=== PATIENT | female | born 1945 | race Caucasian/White ===

== ENCOUNTER 2019-04-29 09:25 | Emergency (ER) | payer MEDICARE ==
[2019-04-29 09:35] LABS: BASOPHILS % (AUTO) 0.5 % (0.0-5.0); EOSINOPHILS % (AUTO) 2.6 % (0.0-8.0); HEMATOCRIT 48.4 % (36-48); LYMPHOCYTES % (AUTO) 20.2 % (21.0-51.0); MEAN CORPUSCULAR HEMOGLOBIN 28.4 pg (27.0-33.0); MEAN CORPUSCULAR HGB CONC 34.1 g/dL (32.0-36.0); MEAN CORPUSCULAR VOLUME 83.2 fL (79-99); MONOCYTES % (AUTO) 6.5 % (3.0-13.0); NEUTROPHILS % (AUTO) 69.5 % (40.0-77.0); PLATELET COUNT (AUTO) 275 K/uL (130-400); RED BLOOD CELL COUNT(AUTO) 5.82 MIL/uL (4.00-5.50); RED CELL DISTRIBUTION WIDTH 12.5 % (11.0-15.5); WHITE BLOOD COUNT (AUTO) 10.2 K/uL (4.8-10.8)
[2019-04-29 09:44] LABS: INR 0.97 (0.85-1.15); PARTIAL THROMBOPLASTIN TIME 29.6 SEC (26.3-35.5); POTASSIUM 3.8 mmol/L (3.5-5.1); PROTHROMBIN TIME 10.2 SEC (9.6-11.6)
[2019-04-29] MEDS ORDERED: ASPIRIN 325 MG TABLET ONE (09:52)
[2019-04-29 09:53] LABS: ALBUMIN 3.7 g/dL (3.5-5.0); BILIRUBIN,TOTAL 0.7 mg/dL (0.2-1.0); TOTAL PROTEIN, SERUM 7.8 g/dL (6.0-8.3)
[2019-04-29] MEDS ORDERED: INSULIN HUMULIN R 100 UNIT/ML 3ML ONE (11:30)
[2019-04-29] MEDS ORDERED: NITROGLYCERIN 1GM/1 INCH PACKET TD ONE (11:41)
[2019-04-29] MEDS ORDERED: KETOROLAC TROMETHAMINE 15MG/ML ONE (11:41)
== END 2019-04-29 14:03 | disposition home or self-care (01) ==
LOC: EDH 09:25
DX: R07.89 Other chest pain (principal); E11.65 Type 2 diabetes mellitus with hyperglycemia; R03.0 Elevated blood-pressure reading, without diagnosis of hypertension; Z72.0 Tobacco use
CPT/HCPCS: 36415; 71045; 74176; 80053; 82550; 82948; 84484 ×2; 85025; 85610; 85730; 93005 ×2; 96374; 96375; 99285; J1815; J1885

== ENCOUNTER 2019-05-11 13:12 | Inpatient (IN) | payer MEDICARE ==
[~2019-05-11] VITALS: Ht 160 cm; Wt 80.6 kg
[2019-05-11 13:31] LABS: BASOPHILS % (AUTO) 0.3 % (0.0-5.0); EOSINOPHILS % (AUTO) 1.1 % (0.0-8.0); LYMPHOCYTES % (AUTO) 11.6 % (21.0-51.0); MEAN CORPUSCULAR HEMOGLOBIN 28.9 pg (27.0-33.0); MEAN CORPUSCULAR HGB CONC 34.5 g/dL (32.0-36.0); MEAN CORPUSCULAR VOLUME 83.9 fL (79-99); MONOCYTES % (AUTO) 3.5 % (3.0-13.0); NEUTROPHILS % (AUTO) 82.7 % (40.0-77.0); PLATELET COUNT (AUTO) 229 K/uL (130-400); RED CELL DISTRIBUTION WIDTH 12.3 % (11.0-15.5); WHITE BLOOD COUNT (AUTO) 11.3 K/uL (4.8-10.8)
[2019-05-11 13:38] LABS: INR 0.92 (0.85-1.15)
[2019-05-11 13:44] LABS: ALBUMIN 3.8 g/dL (3.5-5.0); BILIRUBIN,TOTAL 0.8 mg/dL (0.2-1.0); CREATININE 0.8 mg/dL (0.5-1.5); POTASSIUM 3.6 mmol/L (3.5-5.1); TOTAL PROTEIN, SERUM 8.1 g/dL (6.0-8.3)
[2019-05-11] MEDS ORDERED: ASPIRIN 325 MG TABLET ONE (13:45)
[2019-05-11] MEDS ORDERED: ONDANSETRON HCL 4 MG/2 ML VIAL ONE ×2 (14:06→19:46)
[2019-05-11] MEDS ORDERED: MORPHINE SULFATE 2 MG/ML 1ML SYG ONE ×2 (14:06→19:42)
[2019-05-11] MEDS ORDERED: SODIUM CHLORIDE 0.9% 500ML 500 ML IV ONE (14:07)
[2019-05-11] MEDS ORDERED: FAMOTIDINE/PF 20 MG/2 ML VIAL IV ONE (14:17)
[2019-05-11] MEDS ORDERED: INSULIN HUMULIN R 100 UNIT/ML 3ML ONE ×2 (14:18→18:52)
[2019-05-11 15:07] LABS: APPEARANCE,URINE Cloudy (CLEAR); BILIRUBIN,URINE Negative (NEGATIVE); COLOR,URINE Yellow (YELLOW); GLUCOSE, URINE (UA) >=1000 mg/dL (NEGATIVE); KETONES,URINE 40 mg/dL (NEGATIVE); LEUKOCYTE ESTERASE ,URINE Negative (NEGATIVE); NITRATE,URINE Negative (NEGATIVE); OCCULT BLOOD,URINE Nonhemolyzed Trace (NEGATIVE); PROTEIN,URINE Negative (NEGATIVE); UROBILINOGEN,URINE 0.2 mg/dL (0.2-1.0)
[2019-05-11 15:13] LABS: ABG BASE EXCESS -4.2 mmol/L (-2.0-3.0); ABG HCO3 20.8 mmol/L (21.0-28.0); ABG PCO2 38 mmHg (32-45)
[2019-05-11 15:15] LABS: BACTERIA,URINE Rare /HPF (None Seen); RBC,URINE 0-1 /HPF (0-1); WBC,URINE 0-1 /HPF (0-1); YEAST,URINE BUDDING Many /HPF (None Seen)
[2019-05-11] MEDS ORDERED: ACETAMINOPHEN 325 MG TAB PO PRN (15:45)
[2019-05-11] MEDS ORDERED: KETOROLAC TROMETHAMINE 15MG/ML IV PRN (17:00)
[2019-05-11] MEDS ORDERED: DEXTROSE 5 %-0.45 % NACL 1,000 ML IV PRN (17:06)
[2019-05-11] MEDS ORDERED: SODIUM CHLORIDE 0.9% 1000ML 1,000 ML IV SCH ×2 (17:06)
[2019-05-11] MEDS ORDERED: INSULIN HUMULIN R 100 UNIT/ML 3ML IV SCH (17:15)
[2019-05-11] MEDS ORDERED: POTASSIUM CHLORIDE 10MEQ/100ML 100 ML IV PRN (17:15)
[2019-05-11] MEDS ORDERED: KETOROLAC TROMETHAMINE 15MG/ML ONE (17:40)
[2019-05-11 17:57] LABS: HEMOGLOBIN A1C 9.8 % (4.0-6.0)
[2019-05-11 17:58] LABS: CREATININE 0.8 mg/dL (0.5-1.5); MAGNESIUM 1.8 mg/dL (1.80-2.40); POTASSIUM 3.6 mmol/L (3.5-5.1)
[2019-05-11] MEDS ORDERED: IOHEXOL-350 75 ML VIAL IV ONE (18:50)
[2019-05-11] MEDS ORDERED: SODIUM CHLORIDE 0.9% 100 ML IV ONE (18:52)
[2019-05-11] MEDS ORDERED: SODIUM CHLORIDE 0.9% 1000ML 1,000 ML IV ONE ×2 (19:16→23:29)
[2019-05-11] MEDS ORDERED: METOPROLOL TARTRATE 25 MG TAB PO SCH (21:00)
[2019-05-11] MEDS: ATORVASTATIN CALCIUM 20 MG TABLET PO SCH (21:00)
[2019-05-11] MEDS: FAMOTIDINE 20MG TAB 20 MG TAB PO SCH (21:00)
[2019-05-11 21:20] LABS: TROPONIN I 13.7 ng/mL (0.00-0.06)
[2019-05-11] MEDS ORDERED: FAMOTIDINE 20MG TAB 20 MG TAB ONE (22:14)
[2019-05-11] MEDS ORDERED: METOPROLOL TARTRATE 25 MG TAB ONE (22:14)
[2019-05-11] MEDS ORDERED: ATORVASTATIN CALCIUM 20 MG TABLET ONE (22:14)
[2019-05-11] MEDS ORDERED: HEPARIN 25000 UNITS/250 ML D5W 250 ML IV SCH (22:15)
[2019-05-11] MEDS ORDERED: TICAGRELOR 90 MG TABLET PO SCH (22:15)
[2019-05-11] MEDS ORDERED: SODIUM CHLORIDE 0.9% 500ML 500 ML IV SCH (22:17)
[2019-05-11 23:18] LABS: CREATININE 0.8 mg/dL (0.5-1.5); POTASSIUM 3.5 mmol/L (3.5-5.1)
[2019-05-11 23:21] LABS: INR 0.94 (0.85-1.15); PARTIAL THROMBOPLASTIN TIME 26.5 SEC (26.3-35.5); PROTHROMBIN TIME 10.2 SEC (9.6-11.6)
[2019-05-11] MEDS ORDERED: POTASSIUM CHLORIDE 10MEQ/100ML 100 ML IV ONE (23:27)
[2019-05-11] MEDS ORDERED: TICAGRELOR 90 MG TABLET ONE (23:28)
[2019-05-11] MEDS ORDERED: HEPARIN 25000 UNITS/250 ML D5W 250 ML IV ONE (23:28)
[2019-05-11] MEDS ORDERED: HEPARIN SODIUM 5000UNIT/ML 1ML VIAL ONE (23:54)
[2019-05-12] VITALS (25 sets, daily range): BP systolic 85–142; BP diastolic 39–82
[2019-05-12 00:17] LABS: ABG BASE EXCESS -4.4 mmol/L (-2.0-3.0); ABG HCO3 20.1 mmol/L (21.0-28.0); ABG OXYGEN SATURATION 97.2 % (95.0-99.0); ABG PCO2 36 mmHg (32-45)
[2019-05-12] MEDS ORDERED: LIDOCAINE HCL-MPF 1% 2ML VIAL ONE ×2 (00:17→02:14)
[2019-05-12] MEDS ORDERED: POTASSIUM CHLORIDE 10MEQ/100ML 100 ML IV ONE (02:14)
[2019-05-12] MEDS ORDERED: MORPHINE SULFATE 2 MG/ML 1ML SYG ONE (02:15)
[2019-05-12] MEDS ORDERED: ONDANSETRON HCL 4 MG/2 ML VIAL ONE ×2 (02:26→08:37)
[2019-05-12 04:38] LABS: ABG BASE EXCESS -3.5 mmol/L (-2.0-3.0); ABG HCO3 21.1 mmol/L (21.0-28.0); ABG OXYGEN SATURATION 94.3 % (95.0-99.0); ABG PCO2 37 mmHg (32-45)
[2019-05-12 05:40] LABS: BASOPHILS % (AUTO) 0.1 % (0.0-5.0); EOSINOPHILS % (AUTO) 0.1 % (0.0-8.0); HEMATOCRIT 42.2 % (36-48); LYMPHOCYTES % (AUTO) 7.4 % (21.0-51.0); MEAN CORPUSCULAR HEMOGLOBIN 28.5 pg (27.0-33.0); MEAN CORPUSCULAR HGB CONC 33.6 g/dL (32.0-36.0); MEAN CORPUSCULAR VOLUME 84.6 fL (79-99); MONOCYTES % (AUTO) 5.3 % (3.0-13.0); NEUTROPHILS % (AUTO) 86.3 % (40.0-77.0); PLATELET COUNT (AUTO) 272 K/uL (130-400); RED BLOOD CELL COUNT(AUTO) 4.99 MIL/uL (4.00-5.50); RED CELL DISTRIBUTION WIDTH 12.5 % (11.0-15.5); WHITE BLOOD COUNT (AUTO) 17.1 K/uL (4.8-10.8)
[2019-05-12] MEDS ORDERED: SODIUM CHLORIDE 0.9% 1000ML 1,000 ML IV ONE (06:15)
[2019-05-12 06:19] LABS: CREATININE 0.6 mg/dL (0.5-1.5); MAGNESIUM 1.7 mg/dL (1.80-2.40); POTASSIUM 3.6 mmol/L (3.5-5.1)
[2019-05-12] MEDS ORDERED: DiphenhydrAMINE HCL 50 MG/ML VIAL ONE (08:29)
[2019-05-12] MEDS ORDERED: METHYLPREDNISOLONE SOD SUCC 125MG/2ML VIAL ONE (08:29)
[2019-05-12] MEDS ORDERED: HEPARIN SODIUM 1000UNIT/ML 10ML VIAL ONE (08:39)
[2019-05-12] MEDS ORDERED: NITROGLYCERIN 2 MG/VIAL VIAL IV ONE (08:39)
[2019-05-12] MEDS ORDERED: FENTANYL CITRATE PF 50 MCG/1 ML 2ML VIAL ONE (08:40)
[2019-05-12] MEDS ORDERED: MIDAZOLAM HCL 1 MG/ML 2ML VIAL ONE (08:40)
[2019-05-12] MEDS ORDERED: IOHEXOL-350 50ML VIAL IV ONE (08:40)
[2019-05-12] MEDS ORDERED: LIDOCAINE HCL 2% 20ML ONE (08:40)
[2019-05-12] MEDS ORDERED: IOHEXOL 350 MG/ML 100ML INFUS..BTL IV ONE (08:40)
[2019-05-12] MEDS ORDERED: NITROGLYCERIN 0.2 MG/HR PATCH TD SCH (09:00)
[2019-05-12] MEDS: NICOTINE 14 MG/ 24 HR PATCH TD SCH (09:00)
[2019-05-12] MEDS ORDERED: ENOXAPARIN SODIUM 40 MG/0.4 ML SYRINGE SQ SCH (09:00)
[2019-05-12] MEDS ORDERED: GLUCAGON 1MG KIT 1 MG ML IM PRN (10:00)
[2019-05-12] MEDS ORDERED: DEXTROSE 50%-WATER 50 ML DISP.SYRIN IV PRN (10:00)
[2019-05-12] MEDS: NITROGLYCERIN 1GM/1 INCH PACKET TD SCH ×3 (11:45→23:03)
[2019-05-12 11:48] LABS: CREATININE 0.6 mg/dL (0.5-1.5); POTASSIUM 3.7 mmol/L (3.5-5.1)
[2019-05-12] MEDS: MORPHINE SULFATE 2 MG/ML 1ML SYG IVP PRN (11:49)
[2019-05-12] MEDS: TICAGRELOR 90 MG TABLET PO SCH ×2 (11:52→21:04)
[2019-05-12] MEDS: ISOSORBIDE MONO 30MG TAB SR PO SCH (11:52)
[2019-05-12] MEDS: ASPIRIN 81MG TAB.CHEW PO SCH (11:52)
[2019-05-12] MEDS: FAMOTIDINE 20MG TAB 20 MG TAB PO SCH ×2 (11:53→21:02)
[2019-05-12] MEDS: INSULIN HUMULIN R 100 UNIT/ML 3ML SQ SCH ×2 (12:00→17:41)
[2019-05-12] MEDS ORDERED: POTASSIUM CHLORIDE 10% ELIXIR 20 MEQ/15 ML UDCUP PO PRN (12:15)
[2019-05-12] MEDS ORDERED: LIDOCAINE HCL-MPF 1% 2ML VIAL IV PRN (12:15)
[2019-05-12] MEDS ORDERED: POTASSIUM CHLORIDE 20MEQ/100ML 100 ML IV PRN (12:15)
[2019-05-12] MEDS ORDERED: POTASSIUM CHLORIDE 20 MEQ ERTAB PO PRN (12:15)
--- NOTE | 2019-05-12 12:23 | NUR ---
Unable to Assess SW attempted to meet with patient while in the ER but patient was taken to [facility]. SW will follow up with patient at a later time.
[2019-05-12] MEDS ORDERED: PNEUMOCOCCAL VACCINE POLYVALENT 0.5 ML/VIAL [PPV] IM SCH (17:07)
--- NOTE | 2019-05-12 18:30 | NUR ---
SLOW VENTRICULAR TACHYCARDIA DR AGARWAL AT BEDSIDE TO ASSESS PATIENT. PATIENT FULLY ASLEEP IN BED. RHYTHM IN MONITOR NOW SHOWING PERSISTENT VENTRICULAR TACHYCARDIA @ 115 BPM. WOKE PATIENT UP TO ASSESS AND SHE BEGAN CONVERSING WITH DR AGARWAL STATING THAT SHE WAS FEELING OK. PATIENT IS AWAKE ALERT AND ORIENTED, NOT SYMPTOMATIC AT THIS TIME.
--- NOTE | 2019-05-12 18:45 | NUR ---
DR AGARWAL STILL AT BEDSIDE PATIENT NOW STATING THAT SHE IS FEELING SOB, WEAK, AND NAUSEATED. SLOW VENTRICULAR TACHYCARDIA PERSISTING. DR AGARWAL REVIEWING PATIENT'S EKG TRACINGS THROUGHOUT THE DAY. LAB VALUES REVIEWED. ORDERED 2GM MAG IV, LOPRESSOR 5MG IV PUSH. 2LNC O2 PLACED ON PATIENT.
--- NOTE | 2019-05-12 19:00 | NUR ---
DR. ARRON HELLER AT BEDSIDE. PT S/P [facility] 05/12/2019. ISCHEMIC VT/SLOW V-TACT NOTED BY DR AGARWAL. SEE ORDER FOR AMIODARONE, AMIODARONE BOLUS, LIDOCAINE, LIDOCAINE BOLUS AND LABS. EKG DONE AT BEDSIDE.
[2019-05-12] MEDS ORDERED: METOPROLOL TARTRATE 1 MG/ML 5ML VIAL IV ONE (19:04)
[2019-05-12] MEDS ORDERED: AMIODARONE HCL 150 MG in DEXTROSE 5%-WATER 100 ML IV SCH (19:15)
[2019-05-12] MEDS ORDERED: AMIODARONE HCL 450 MG in DEXTROSE 5%-WATER 250 ML IV SCH (19:15)
[2019-05-12] MEDS ORDERED: AMIODARONE HCL 360 MG in DEXTROSE 5%-WATER 200 ML IV SCH (19:15)
[2019-05-12] MEDS ORDERED: LIDOCAINE 2G/250ML 250 ML IV PRN (19:15)
[2019-05-12] MEDS ORDERED: LIDOCAINE HCL/PF 2% IV FOR VENTRICULAR ARRHYTHMIA IV PRN (19:15)
[2019-05-12] MEDS ORDERED: LIDOCAINE 2G/250ML 250 ML IV NR (19:17)
--- NOTE | 2019-05-12 19:28 | NUR ---
VENTRICULAR TACHYCARDIA STOPPED, PATIENT SPONTANEOUSLY CONVERTED TO NSR RT 75-80 DR AGARWAL AT BEDSIDE AND WITNESSED PATIENT CONVERTING BACK TO SINUS RHYTHM.
--- NOTE | 2019-05-12 19:30 | NUR ---
ASSESSMENT PT NOW RESTING IN BED. PT ANXIOUS,ISCHEMIC VT/ST VT EXPLAINED TO PT. PT AAOX4. ASSESSMENT COMPLETED, SEE FLOW SHEET
[2019-05-12 20:26] LABS: CREATININE 0.8 mg/dL (0.5-1.5); POTASSIUM 3.3 mmol/L (3.5-5.1)
[2019-05-12 20:30] LABS: MAGNESIUM 1.5 mg/dL (1.80-2.40); PHOSPHORUS 2.5 mg/dL (2.5-4.9)
[2019-05-12] MEDS ORDERED: INSULIN HUMULIN R 100 UNIT/ML 3ML ONE (20:40)
[2019-05-12] MEDS: INSULIN GLARGINE 100 UNITS/ML 10 ML VIAL SQ SCH (20:53)
[2019-05-12] MEDS ORDERED: INSULIN HUMULIN R 100 UNIT/ML 3ML SQ SCH (21:00)
[2019-05-12] MEDS: ATORVASTATIN CALCIUM 20 MG TABLET PO SCH (21:04)
[2019-05-12] MEDS: METOPROLOL TARTRATE 50 MG TAB PO SCH (21:05)
[2019-05-12] MEDS ORDERED: SODIUM CHLORIDE 0.9% 250 ML IV ONE (22:52)
[2019-05-12] MEDS: MAGNESIUM 2GM PREMIX 50ML 50 ML IV PRN (23:01)
[2019-05-13] VITALS (26 sets, daily range): BP systolic 82–133; BP diastolic 38–109
[2019-05-13 04:02] LABS: BASOPHILS % (AUTO) 0.1 % (0.0-5.0); HEMATOCRIT 40.3 % (36-48); LYMPHOCYTES % (AUTO) 7.1 % (21.0-51.0); MEAN CORPUSCULAR HGB CONC 34.5 g/dL (32.0-36.0); MEAN CORPUSCULAR VOLUME 84.1 fL (79-99); MONOCYTES % (AUTO) 9.1 % (3.0-13.0); NEUTROPHILS % (AUTO) 82.7 % (40.0-77.0); PLATELET COUNT (AUTO) 277 K/uL (130-400); RED BLOOD CELL COUNT(AUTO) 4.79 MIL/uL (4.00-5.50); RED CELL DISTRIBUTION WIDTH 12.5 % (11.0-15.5); WHITE BLOOD COUNT (AUTO) 20.1 K/uL (4.8-10.8)
[2019-05-13 04:13] LABS: CREATININE 0.8 mg/dL (0.5-1.5); MAGNESIUM 2.7 mg/dL (1.80-2.40); POTASSIUM 3.4 mmol/L (3.5-5.1)
[2019-05-13 04:27] LABS: B-TYPE NATRIURETIC PEPTIDE 418 pg/mL (0-100)
[2019-05-13] MEDS: NITROGLYCERIN 1GM/1 INCH PACKET TD SCH (04:45)
--- NOTE | 2019-05-13 05:05 | NUR ---
BP BP 95/52, NITRO HELD
[2019-05-13] MEDS: INSULIN LISPRO 100 UNIT/ML 3ML SQ SCH ×7 (05:57→20:42)
--- NOTE | 2019-05-13 09:00 | NUR ---
PT CHEST PAIN FREE. PLAN OF CARE DISCUSSED. STABLE
[2019-05-13] MEDS: METOPROLOL TARTRATE 50 MG TAB PO SCH ×2 (10:15→20:43)
[2019-05-13] MEDS: TICAGRELOR 90 MG TABLET PO SCH ×2 (10:15→20:53)
[2019-05-13] MEDS: ISOSORBIDE MONO 30MG TAB SR PO SCH (10:15)
[2019-05-13] MEDS: ASPIRIN 81MG TAB.CHEW PO SCH (10:16)
[2019-05-13] MEDS: NICOTINE 14 MG/ 24 HR PATCH TD SCH (10:26)
[2019-05-13] MEDS: FAMOTIDINE 20MG TAB 20 MG TAB PO SCH ×2 (10:31→20:53)
[2019-05-13 11:08] LABS: MAGNESIUM 2.3 mg/dL (1.80-2.40); PHOSPHORUS 1.8 mg/dL (2.5-4.9)
[2019-05-13] MEDS: NEUTRA-PHOS PACKET 1 EACH PO SCH ×2 (13:30→20:53)
--- NOTE | 2019-05-13 15:42 | NUR ---
DIRECTIVES Sw has attempted to visit with pt several times today. No family at bedside and pt requesting no visitors at this time. Sw to follow and assist when able
[2019-05-13] MEDS: MORPHINE SULFATE 2 MG/ML 1ML SYG IVP PRN ×2 (16:24→21:35)
[2019-05-13] MEDS: ONDANSETRON HCL 4 MG/2 ML VIAL IVP PRN ×2 (16:30→21:35)
--- NOTE | 2019-05-13 16:52 | NUR ---
PT HAD EPISODE OF +6 LEFT SIDED CHEST PAIN UNDER LEFT BREAST RADIATING TO LEFT SHOULDER WITH SOME MILD NAUSEA. THIS OCCURED AFTER GETTING UP TO BATHROOM TO VOID. I NOTIFIED DR AGARWAL AND INFORMED HIM OF EPISODE. ORDERS WERE RECIEVED. HR 83 NSR,BP 117/65. O2 SAT 99%. NO SOB. IV SITE TO LEFT ANTECUBITUS REMOVED INTACT -REMOVED DUE TO PAIN
--- NOTE | 2019-05-13 17:27 | NUR ---
VICTOR[facility] PLAN DAY ONE PATIENT DOWN FOR PROCEDURE. DAY TWO PATIENT DID NOT WANT VISITORS. GEOVANI WILL CONTINUE TO FOLLOW. Addendum: 05/13/19 at 1728 by JALEN ROSS RN CM Amended: Links added.
--- NOTE | 2019-05-13 17:32 | NUR ---
EKG RHYTHM CHANGE NOTED- [address]KG DONE AND DR AGARWAL CALLED. PT ASYMPTOMATIC AND HAS NO CHEST PAIN OR SOB. SHE IS SITTING IN CHAIR EATING DINNER NOW. DR AGARWAL SAID HE WOULD BE CALLING HIS COLLEAGUE DR MASON AND HE WOULD CALL ME BACK
--- NOTE | 2019-05-13 17:39 | NUR ---
PT NOW BACK IN HER NORMAL SINUS RHYTHM RATE [id number]
[2019-05-13] MEDS ORDERED: AMIODARONE HCL 450 MG in DEXTROSE 5%-WATER 250 ML IV SCH (18:15)
[2019-05-13] MEDS ORDERED: AMIODARONE HCL 150 MG in DEXTROSE 5%-WATER 100 ML IV SCH (18:15)
[2019-05-13] MEDS ORDERED: AMIODARONE HCL 360 MG in DEXTROSE 5%-WATER 200 ML IV SCH (18:15)
--- NOTE | 2019-05-13 19:31 | NUR ---
HAND OFF REPORT GIVEN TO LYNNE SAUL
[2019-05-13] MEDS: INSULIN GLARGINE 100 UNITS/ML 10 ML VIAL SQ SCH (20:43)
[2019-05-13] MEDS: ATORVASTATIN CALCIUM 20 MG TABLET PO SCH (20:53)
[2019-05-13 21:08] LABS: CREATININE 0.7 mg/dL (0.5-1.5); MAGNESIUM 2.1 mg/dL (1.80-2.40); PHOSPHORUS 2.1 mg/dL (2.5-4.9); POTASSIUM 3.7 mmol/L (3.5-5.1)
[2019-05-14] VITALS (29 sets, daily range): BP systolic 92–134; BP diastolic 44–84
[2019-05-14 03:46] LABS: BASOPHILS % (AUTO) 0.2 % (0.0-5.0); EOSINOPHILS % (AUTO) 0.8 % (0.0-8.0); HEMATOCRIT 38.2 % (36-48); LYMPHOCYTES % (AUTO) 12.2 % (21.0-51.0); MEAN CORPUSCULAR HEMOGLOBIN 28.4 pg (27.0-33.0); MEAN CORPUSCULAR HGB CONC 33.5 g/dL (32.0-36.0); MEAN CORPUSCULAR VOLUME 84.9 fL (79-99); MONOCYTES % (AUTO) 9.7 % (3.0-13.0); NEUTROPHILS % (AUTO) 76.3 % (40.0-77.0); PLATELET COUNT (AUTO) 233 K/uL (130-400); RED CELL DISTRIBUTION WIDTH 12.7 % (11.0-15.5)
[2019-05-14 04:00] LABS: CREATININE 0.6 mg/dL (0.5-1.5); PHOSPHORUS 2.6 mg/dL (2.5-4.9); POTASSIUM 3.6 mmol/L (3.5-5.1)
[2019-05-14] MEDS: INSULIN LISPRO 100 UNIT/ML 3ML SQ SCH ×6 (07:05→21:00)
[2019-05-14] MEDS: METOPROLOL TARTRATE 50 MG TAB PO SCH ×2 (07:57→21:26)
[2019-05-14] MEDS: ISOSORBIDE MONO 30MG TAB SR PO SCH (07:57)
[2019-05-14] MEDS: ASPIRIN 81MG TAB.CHEW PO SCH (07:58)
[2019-05-14] MEDS: TICAGRELOR 90 MG TABLET PO SCH ×2 (07:58→21:26)
[2019-05-14] MEDS: FAMOTIDINE 20MG TAB 20 MG TAB PO SCH ×2 (07:58→21:25)
[2019-05-14] MEDS: NEUTRA-PHOS PACKET 1 EACH PO SCH ×2 (07:59→21:26)
[2019-05-14] MEDS: NICOTINE 14 MG/ 24 HR PATCH TD SCH (08:36)
[2019-05-14] MEDS: ONDANSETRON HCL 4 MG/2 ML VIAL IVP PRN ×2 (11:51→17:19)
--- NOTE | 2019-05-14 11:56 | NUR ---
DC PLAN PATIENT LIVES WITH SON. INDEPENDENT ABLE TO PERFORM ADL'S. PATIENT HAS NO SERVICES OR DME'S. FEELS SAFE TO RETURN HOME. Addendum: 05/14/19 at 1159 by JALEN ROSS RN CM Amended: Links added.
--- NOTE | 2019-05-14 13:31 | NUR ---
DIRECTIVES Sw met with pt and daughter Jennifer. Pt wanting to complete Directives and MPOA. SW assist with completing form. Forms were signed and witnessed. Copy placed in chart and original given to daughter in law at bedside.
--- NOTE | 2019-05-14 19:05 | NUR ---
Received report ,patient is off Amiodarone drip.
[2019-05-14] MEDS: ATORVASTATIN CALCIUM 20 MG TABLET PO SCH (21:26)
[2019-05-14] MEDS: INSULIN GLARGINE 100 UNITS/ML 10 ML VIAL SQ SCH (21:35)
[2019-05-14] MEDS ORDERED: ALPRAZOLAM 0.25 MG TABLET PO ONE (22:00)
[2019-05-14] MEDS ORDERED: ALPRAZOLAM 0.25 MG TABLET ONE (23:05)
[2019-05-15] VITALS (29 sets, daily range): BP systolic 95–146; BP diastolic 47–84
[2019-05-15 05:12] LABS: MAGNESIUM 1.9 mg/dL (1.80-2.40); PHOSPHORUS 2.9 mg/dL (2.5-4.9)
[2019-05-15] MEDS: INSULIN LISPRO 100 UNIT/ML 3ML SQ SCH ×7 (05:52→21:00)
[2019-05-15] MEDS: MAGNESIUM 2GM PREMIX 50ML 50 ML IV PRN (06:32)
--- NOTE | 2019-05-15 07:41 | NUR ---
Endorsed care to incoming NOD using SBAR all questions answered.Magnesium replaced.
[2019-05-15] MEDS: ASPIRIN 81MG TAB.CHEW PO SCH (08:45)
[2019-05-15] MEDS: TICAGRELOR 90 MG TABLET PO SCH ×2 (08:45→20:41)
[2019-05-15] MEDS: NEUTRA-PHOS PACKET 1 EACH PO SCH ×2 (08:47→20:41)
[2019-05-15] MEDS: NICOTINE 14 MG/ 24 HR PATCH TD SCH (08:47)
[2019-05-15] MEDS: FAMOTIDINE 20MG TAB 20 MG TAB PO SCH (08:49)
[2019-05-15] MEDS: ISOSORBIDE MONO 30MG TAB SR PO SCH (09:00)
[2019-05-15] MEDS: METOPROLOL TARTRATE 50 MG TAB PO SCH ×2 (09:00→20:41)
[2019-05-15 11:24] LABS: CREATININE 0.7 mg/dL (0.5-1.5); POTASSIUM 3.5 mmol/L (3.5-5.1)
[2019-05-15] MEDS ORDERED: AMIODARONE HCL 200 MG TABLET PO SCH (14:45)
[2019-05-15] MEDS: ONDANSETRON HCL 4 MG/2 ML VIAL IVP PRN (17:17)
[2019-05-15] MEDS: ATORVASTATIN CALCIUM 20 MG TABLET PO SCH (20:41)
[2019-05-15] MEDS: RANITIDINE HCL 15 MG/1 ML PO SCH (20:42)
[2019-05-15] MEDS: INSULIN GLARGINE 100 UNITS/ML 10 ML VIAL SQ SCH (21:00)
[2019-05-16 03:43] VITALS: BP 113/59
[2019-05-16 04:58] LABS: BASOPHILS % (AUTO) 0.2 % (0.0-5.0); EOSINOPHILS % (AUTO) 1.1 % (0.0-8.0); HEMATOCRIT 39.3 % (36-48); LYMPHOCYTES % (AUTO) 11.6 % (21.0-51.0); MEAN CORPUSCULAR HEMOGLOBIN 28.2 pg (27.0-33.0); MEAN CORPUSCULAR HGB CONC 33.6 g/dL (32.0-36.0); MONOCYTES % (AUTO) 10.4 % (3.0-13.0); NEUTROPHILS % (AUTO) 76.1 % (40.0-77.0); PLATELET COUNT (AUTO) 281 K/uL (130-400); RED BLOOD CELL COUNT(AUTO) 4.68 MIL/uL (4.00-5.50); RED CELL DISTRIBUTION WIDTH 12.7 % (11.0-15.5); WHITE BLOOD COUNT (AUTO) 11.5 K/uL (4.8-10.8)
[2019-05-16 05:19] LABS: CREATININE 0.7 mg/dL (0.5-1.5); MAGNESIUM 1.9 mg/dL (1.80-2.40); PHOSPHORUS 3.1 mg/dL (2.5-4.9); POTASSIUM 3.4 mmol/L (3.5-5.1); THYROID STIMULATING HORMONE 39.11 uIU/mL (0.36-3.74)
[2019-05-16] MEDS: INSULIN LISPRO 100 UNIT/ML 3ML SQ SCH ×4 (06:23→12:11)
[2019-05-16 07:51] VITALS: BP 98/56
[2019-05-16] MEDS ORDERED: AMIODARONE HCL 200 MG TABLET PO SCH (09:00)
[2019-05-16] MEDS: TICAGRELOR 90 MG TABLET PO SCH (09:28)
[2019-05-16] MEDS: RANITIDINE HCL 15 MG/1 ML PO SCH (09:29)
[2019-05-16] MEDS: ASPIRIN 81MG TAB.CHEW PO SCH (09:29)
[2019-05-16] MEDS: NICOTINE 14 MG/ 24 HR PATCH TD SCH (09:29)
[2019-05-16] MEDS: NEUTRA-PHOS PACKET 1 EACH PO SCH (09:30)
[2019-05-16] MEDS ORDERED: NICO-704 TD (09:35)
[2019-05-16] MEDS ORDERED: TICA90TA PO (09:35)
[2019-05-16] MEDS ORDERED: Isosorbide Mono 30MG Tab Sr PO (09:35)
[2019-05-16] MEDS ORDERED: METF-444 PO (09:35)
[2019-05-16] MEDS ORDERED: GLIP5TAB11 PO (09:35)
[2019-05-16] MEDS ORDERED: METO50 PO (09:35)
[2019-05-16] MEDS ORDERED: AMIO200T44 PO (09:35)
[2019-05-16] MEDS ORDERED: ATOR20TA65 PO (09:35)
[2019-05-16] MEDS ORDERED: ASPI-1005 PO (09:35)
[2019-05-16] MEDS ORDERED: LEVO50TA11 PO (09:50)
[2019-05-16] MEDS ORDERED: CEPH500B PO (10:32)
[2019-05-16] MEDS: METOPROLOL TARTRATE 50 MG TAB PO SCH (10:40)
[2019-05-16] MEDS: ISOSORBIDE MONO 30MG TAB SR PO SCH (10:40)
[2019-05-16] MEDS ORDERED: PNEUMOCOCCAL VACCINE POLYVALENT 0.5 ML/VIAL [PPV] IM SCH (11:00)
[2019-05-16 12:10] VITALS: BP 105/60
--- NOTE | 2019-05-16 12:20 | NUR ---
DISCHARGE INSTRUCTIONS DISCHARGE INSTRUCTIONS WERE DISCUSSED WITH THE PATIENT AND FAMILY MEMBER AT THIS TIME. PATIENT AND FAMILY MEMBER VERBALIZED UNDERSTANDING OF INFORMATION OF NEW MEDICATIONS AND FOLLOW UP APPOINTMENTS. PAPERWORK WAS SIGNED BY PATIENT. IV DISCONTINUED, [facility] AMBASSADOR WAS REMOVED. PATIENT SENT DOWN AT THIS TIME.
--- NOTE | 2019-05-16 14:24 | NUR ---
NUTRITION EDUCATION COMPLETED RD PROVIDED DIABETES DIET AND NUTRITION EDUCATION DUE TO NEWLY DIAGNOSED AND ELEVATED A1C OF 9.8%. ALL QUESTIONS WERE ANSWERED AND PT/ FAMILY VERBALIZED UNDERSTANDING. EDUCATION MATERIALS WERE PROVIDED IN [place] FOR HOME. Addendum: 05/16/19 at [address] Amended: Links added.
== END 2019-05-16 12:29 | disposition home or self-care (01) | DRG 280 ==
LOC: EDH 13:12 → EDHIP 15:15 → 2CH 05-12 10:41 → 2DH 05-15 19:40
PROVIDERS: ADMIT Family Medicine; ATTEND Family Medicine
PROC: 4A023N7 Measurement of Cardiac Sampling and Pressure, Left Heart, Percutaneous Approach (ICD-10-PCS; principal; 2019-05-12)
PROC: B2111ZZ Fluoroscopy of Multiple Coronary Arteries using Low Osmolar Contrast (ICD-10-PCS; 2019-05-12)
PROC: B2151ZZ Fluoroscopy of Left Heart using Low Osmolar Contrast (ICD-10-PCS; 2019-05-12)
PROC: 3E0234Z Introduction of Serum, Toxoid and Vaccine into Muscle, Percutaneous Approach (ICD-10-PCS; 2019-05-16)
DX: I21.4 Non-ST elevation (NSTEMI) myocardial infarction (principal); E11.10 Type 2 diabetes mellitus with ketoacidosis without coma; I25.42 Coronary artery dissection; I45.89 Other specified conduction disorders; I47.2 Ventricular tachycardia; I50.22 Chronic systolic (congestive) heart failure; R09.02 Hypoxemia; I25.118 Atherosclerotic heart disease of native coronary artery with other forms of angina pectoris; F17.200 Nicotine dependence, unspecified, uncomplicated; I95.9 Hypotension, unspecified; I11.0 Hypertensive heart disease with heart failure; E03.9 Hypothyroidism, unspecified; E78.5 Hyperlipidemia, unspecified; I25.5 Ischemic cardiomyopathy; Z83.3 Family history of diabetes mellitus; Z82.49 Family history of ischemic heart disease and other diseases of the circulatory system; Z79.899 Other long term (current) drug therapy; Z23 Encounter for immunization; Z71.6 Tobacco abuse counseling
CPT/HCPCS: 36415; 36600; 71045; 80048; 80053; 80061; 81001; 82010; 82435; 82550; 82803; 82947; 82948; 83036; 83605; 83735; 83874; 83880; 84100; 84132; 84145; 84295; 84443; 84484; 85018; 85025; 85347; 85378; 85610; 85730; 90732; 93005; 93306; 93356; 93458; 97039; 99156; 99157; 99291; C1760; C1894; G0378; J0282; J1200; J1644; J1815; J1885; J2250; J2405; J2930; J3010; J3475; J3480; J3490; J7030; J7040; J7060; Q9967

== ENCOUNTER 2019-11-09 01:27 | Inpatient (IN) | payer MEDICARE ==
[~2019-11-09] VITALS: Ht 160 cm; Wt 88.0 kg
[~2019-11-09 01:27] MED LIST: AMIO200T44 PO; ASPI-1005 PO; ATOR20TA65 PO; CEPH500B PO; GLIP5TAB11 PO; Isosorbide Mono 30MG Tab Sr PO; LEVO50TA11 PO; METF-444 PO; METO50 PO; NICO-704 TD; TICA90TA PO
[2019-11-09 02:06] LABS: BASOPHILS % (AUTO) 0.4 % (0.0-5.0); EOSINOPHILS % (AUTO) 4.9 % (0.0-8.0); HEMATOCRIT 48.7 % (36-48); LYMPHOCYTES % (AUTO) 41.5 % (21.0-51.0); MEAN CORPUSCULAR HEMOGLOBIN 29.4 pg (27.0-33.0); MEAN CORPUSCULAR HGB CONC 33.5 g/dL (32.0-36.0); MEAN CORPUSCULAR VOLUME 87.9 fL (79-99); MONOCYTES % (AUTO) 4.8 % (3.0-13.0); NEUTROPHILS % (AUTO) 47.6 % (40.0-77.0); PLATELET COUNT (AUTO) 314 K/uL (130-400); RED BLOOD CELL COUNT(AUTO) 5.54 MIL/uL (4.00-5.50); RED CELL DISTRIBUTION WIDTH 13.2 % (11.0-15.5); WHITE BLOOD COUNT (AUTO) 14.3 K/uL (4.8-10.8)
[2019-11-09 02:17] LABS: POTASSIUM 3.7 mmol/L (3.5-5.1)
[2019-11-09 02:21] LABS: INR 0.97 (0.85-1.15); PROTHROMBIN TIME 10.5 SEC (9.6-11.6)
[2019-11-09 02:26] LABS: ALBUMIN 3.8 g/dL (3.5-5.0); BILIRUBIN,TOTAL 0.5 mg/dL (0.2-1.0); TOTAL PROTEIN, SERUM 8.1 g/dL (6.0-8.3)
[2019-11-09] MEDS ORDERED: IOHEXOL-350 75 ML VIAL IV ONE (03:02)
[2019-11-09] MEDS ORDERED: AZITHROMYCIN 500MG+NS 250ML 250 ML IV ONE (04:51)
[2019-11-09] MEDS ORDERED: DEXAMETHASONE SOD PHOSPHATE 4 MG/ML 5ML VIAL ONE (04:51)
[2019-11-09] MEDS ORDERED: CEFTRIAXONE SODIUM 1 GM ONE (04:51)
[2019-11-09] MEDS ORDERED: ACETAMINOPHEN EXTRA STRENGTH 500 MG TABLET ONE (04:52)
[2019-11-09] MEDS ORDERED: INSULIN HUMULIN R 100 UNIT/ML 3ML ONE ×2 (04:52→06:44)
[2019-11-09] MEDS ORDERED: SODIUM CHLORIDE 0.9% 50 ML IV ONE (04:53)
[2019-11-09] MEDS ORDERED: ACETAMINOPHEN 325 MG TAB PO PRN ×2 (05:00)
[2019-11-09] MEDS: AZITHROMYCIN 500MG+NS 250ML 250 ML IV SCH (05:00)
[2019-11-09] MEDS ORDERED: HYDRALAZINE HCL 20 MG/ML VIAL IV PRN (05:00)
[2019-11-09] MEDS ORDERED: DOXYCYCLINE 100MG+NS 250ML IV SCH (05:00)
[2019-11-09] MEDS ORDERED: NITROGLYCERIN 0.4 MG SL TAB SL PRN (05:00)
[2019-11-09] MEDS ORDERED: ERGOCALCIFEROL (VITAMIN D2) 50,000 UNIT CAPSULE PO ONE (05:00)
[2019-11-09] MEDS ORDERED: HYDROCODONE/ACETAMINOPHEN 5/325 MG TAB PO PRN (05:00)
[2019-11-09] MEDS: INSULIN HUMULIN R 100 UNIT/ML 3ML SQ SCH ×4 (07:30→21:01)
[2019-11-09 08:15] VITALS: BP 129/63
[2019-11-09] MEDS: AMIODARONE HCL 200 MG TABLET PO SCH (09:00)
[2019-11-09] MEDS: ACETYLCYSTEINE 600 MG CAPSULE PO SCH ×2 (09:00→21:02)
[2019-11-09] MEDS: ISOSORBIDE MONO 30MG TAB SR PO SCH (09:00)
[2019-11-09] MEDS ORDERED: TICAGRELOR 90 MG TABLET PO SCH (09:00)
[2019-11-09] MEDS: ASCORBIC ACID 500 MG TAB PO SCH (09:00)
[2019-11-09] MEDS: ASPIRIN 81MG TAB.CHEW PO SCH (09:00)
[2019-11-09] MEDS: ZINC SULFATE 220 CAPSULE PO SCH (09:00)
[2019-11-09] MEDS: METOPROLOL TARTRATE 50 MG TAB PO SCH ×2 (09:00→21:02)
[2019-11-09] MEDS: ENOXAPARIN SODIUM 80 MG/0.8 ML SQ SCH ×2 (09:00→21:02)
[2019-11-09 11:00] VITALS: BP 120/74
[2019-11-09] MEDS: METHYLPREDNISOLONE SOD SUCC 40MG/ML 1ML IVP SCH ×3 (11:46→21:02)
[2019-11-09] MEDS: LEVOTHYROXINE 50 MCG TABLET PO SCH (12:30)
[2019-11-09 16:00] VITALS: BP 115/73
[2019-11-09] MEDS: DOXYCYCLINE 100MG+NS 250ML 250 ML IV SCH (18:42)
[2019-11-09 19:40] VITALS: BP 111/70
[2019-11-09] MEDS: ATORVASTATIN CALCIUM 20 MG TABLET PO SCH (21:02)
[2019-11-10] VITALS (7 sets, daily range): BP systolic 95–131; BP diastolic 50–74
[2019-11-10] MEDS: AZITHROMYCIN 500MG+NS 250ML 250 ML IV SCH (05:09)
[2019-11-10 05:37] LABS: BASOPHILS % (AUTO) 0.1 % (0.0-5.0); HEMATOCRIT 41.4 % (36-48); LYMPHOCYTES % (AUTO) 4.4 % (21.0-51.0); MEAN CORPUSCULAR HEMOGLOBIN 29.7 pg (27.0-33.0); MEAN CORPUSCULAR HGB CONC 34.3 g/dL (32.0-36.0); MEAN CORPUSCULAR VOLUME 86.6 fL (79-99); MONOCYTES % (AUTO) 2.6 % (3.0-13.0); NEUTROPHILS % (AUTO) 91.6 % (40.0-77.0); PLATELET COUNT (AUTO) 240 K/uL (130-400); RED BLOOD CELL COUNT(AUTO) 4.78 MIL/uL (4.00-5.50); RED CELL DISTRIBUTION WIDTH 13.1 % (11.0-15.5); WHITE BLOOD COUNT (AUTO) 21.5 K/uL (4.8-10.8)
[2019-11-10 05:56] LABS: ALANINE AMINOTRANSFERASE 17 U/L (12-78); ALBUMIN 3.1 g/dL (3.5-5.0); ASPARTATE AMINOTRANSFERASE 18 U/L (10-37); BILIRUBIN,TOTAL 0.5 mg/dL (0.2-1.0); CARBON DIOXIDE 23 mmol/L (21-32); CHLORIDE 104 mmol/L (101-111); CREATININE 0.7 mg/dL (0.5-1.5); GLOMERULAR FILTR. RATE CALC 87 mL/min (>60); GLUCOSE,RANDOM 236 mg/dL (70-105); LACTATE DEHYDROGENASE 190 U/L (81-234); POTASSIUM 3.8 mmol/L (3.5-5.1); SODIUM SERUM 139 mmol/L (136-145); TOTAL PROTEIN, SERUM 6.7 g/dL (6.0-8.3); UREA NITROGEN, BLOOD 19 mg/dL (7-18)
[2019-11-10 06:08] LABS: HEMOGLOBIN A1C 9.4 % (4.0-6.0)
[2019-11-10] MEDS: DOXYCYCLINE 100MG+NS 250ML 250 ML IV SCH ×2 (06:29→17:47)
[2019-11-10] MEDS: INSULIN HUMULIN R 100 UNIT/ML 3ML SQ SCH ×5 (06:29→21:00)
[2019-11-10] MEDS: ZINC SULFATE 220 CAPSULE PO SCH (09:31)
[2019-11-10] MEDS: ACETYLCYSTEINE 600 MG CAPSULE PO SCH ×2 (09:31→21:40)
[2019-11-10] MEDS: METOPROLOL TARTRATE 50 MG TAB PO SCH ×2 (09:31→21:41)
[2019-11-10] MEDS: METHYLPREDNISOLONE SOD SUCC 40MG/ML 1ML IVP SCH ×3 (09:31→21:38)
[2019-11-10] MEDS: ASCORBIC ACID 500 MG TAB PO SCH (09:31)
[2019-11-10] MEDS: AMIODARONE HCL 200 MG TABLET PO SCH (09:32)
[2019-11-10] MEDS: ISOSORBIDE MONO 30MG TAB SR PO SCH (09:32)
[2019-11-10] MEDS: LEVOTHYROXINE 50 MCG TABLET PO SCH (09:32)
[2019-11-10] MEDS: ENOXAPARIN SODIUM 80 MG/0.8 ML SQ SCH ×2 (09:32→21:43)
[2019-11-10] MEDS: ASPIRIN 81MG TAB.CHEW PO SCH (09:32)
--- NOTE | 2019-11-10 12:57 | NUR ---
FAMILY UPDATE TALKED TO DAUGHTER BRICE ON THE PHONE,ALL HER QUESTIONS ANSWERED.PATIENT AT [facility] NOTED,VSS.DENIES PAIN
[2019-11-10] MEDS: FUROSEMIDE 10 MG/ML 2ML VIAL IV SCH (17:47)
[2019-11-10] MEDS: INSULIN GLARGINE 100 UNITS/ML 10 ML VIAL SQ SCH (21:00)
[2019-11-10] MEDS ORDERED: METHYLPREDNISOLONE SOD SUCC 40MG/ML 1ML IVP SCH (21:00)
[2019-11-10] MEDS: ATORVASTATIN CALCIUM 20 MG TABLET PO SCH (21:40)
[2019-11-11] MEDS: ONDANSETRON HCL 4 MG/2 ML VIAL IV PRN ×4 (00:14→21:48)
[2019-11-11] MEDS: FUROSEMIDE 10 MG/ML 2ML VIAL IV SCH ×3 (00:31→16:11)
[2019-11-11] MEDS: AZITHROMYCIN 500MG+NS 250ML 250 ML IV SCH (06:02)
[2019-11-11] MEDS: DOXYCYCLINE 100MG+NS 250ML 250 ML IV SCH ×2 (06:02→16:57)
[2019-11-11] MEDS: INSULIN HUMULIN R 100 UNIT/ML 3ML SQ SCH ×7 (06:03→21:00)
[2019-11-11 06:04] LABS: BASOPHILS % (AUTO) 0.1 % (0.0-5.0); HEMATOCRIT 41.2 % (36-48); LYMPHOCYTES % (AUTO) 4.6 % (21.0-51.0); MEAN CORPUSCULAR HEMOGLOBIN 29.6 pg (27.0-33.0); MEAN CORPUSCULAR HGB CONC 34.2 g/dL (32.0-36.0); MEAN CORPUSCULAR VOLUME 86.6 fL (79-99); MONOCYTES % (AUTO) 3.5 % (3.0-13.0); NEUTROPHILS % (AUTO) 90.9 % (40.0-77.0); PLATELET COUNT (AUTO) 258 K/uL (130-400); RED BLOOD CELL COUNT(AUTO) 4.76 MIL/uL (4.00-5.50); RED CELL DISTRIBUTION WIDTH 13.2 % (11.0-15.5); WHITE BLOOD COUNT (AUTO) 19.4 K/uL (4.8-10.8)
[2019-11-11 06:28] VITALS: BP 120/73
[2019-11-11 06:29] LABS: ALANINE AMINOTRANSFERASE 22 U/L (12-78); ALBUMIN 3.2 g/dL (3.5-5.0); ASPARTATE AMINOTRANSFERASE 20 U/L (10-37); BILIRUBIN,TOTAL 0.6 mg/dL (0.2-1.0); CARBON DIOXIDE 25 mmol/L (21-32); CHLORIDE 105 mmol/L (101-111); CREATININE 0.9 mg/dL (0.5-1.5); GLOMERULAR FILTR. RATE CALC 65 mL/min (>60); GLUCOSE,RANDOM 178 mg/dL (70-105); LACTATE DEHYDROGENASE 175 U/L (81-234); POTASSIUM 3.7 mmol/L (3.5-5.1); SODIUM SERUM 141 mmol/L (136-145); TOTAL PROTEIN, SERUM 6.7 g/dL (6.0-8.3); UREA NITROGEN, BLOOD 23 mg/dL (7-18)
[2019-11-11] MEDS: ACETYLCYSTEINE 600 MG CAPSULE PO SCH ×2 (08:20→21:00)
[2019-11-11] MEDS: ASCORBIC ACID 500 MG TAB PO SCH (08:21)
[2019-11-11] MEDS: ISOSORBIDE MONO 30MG TAB SR PO SCH (08:21)
[2019-11-11] MEDS: AMIODARONE HCL 200 MG TABLET PO SCH (08:21)
[2019-11-11] MEDS: LEVOTHYROXINE 50 MCG TABLET PO SCH (08:21)
[2019-11-11] MEDS: METOPROLOL TARTRATE 50 MG TAB PO SCH ×2 (08:21→21:55)
[2019-11-11] MEDS: ASPIRIN 81MG TAB.CHEW PO SCH (08:21)
[2019-11-11] MEDS: ZINC SULFATE 220 CAPSULE PO SCH (08:21)
[2019-11-11] MEDS: METHYLPREDNISOLONE SOD SUCC 40MG/ML 1ML IVP SCH ×3 (08:22→21:00)
[2019-11-11] MEDS: ENOXAPARIN SODIUM 80 MG/0.8 ML SQ SCH ×2 (08:22→21:48)
[2019-11-11 10:50] VITALS: BP 118/81
[2019-11-11 12:35] VITALS: BP 126/83
--- NOTE | 2019-11-11 13:43 | NUR ---
SELINA MET WITH PATIENT AT BEDSIDE FOR D/C PLANNING. PATIENT STATES LIVES WITH GRAND SON AND SON- WHO IS AWAY A LOT; [facility] [place] AVAIL[facility]. PATIENT IS ACTIVE, INDEPENDENT NO DME INC NO SHOWER CHAIR OR NEBULIZER, PATIENT IS EX SMOKER, NOW ON OXYGEN, DISCUSSED THE PARAMETERS FOR OXYGEN RX AT DISCHARGE. DAUGHTER TO PROVIDE TRANSPORT, MD DR. FORDE AT [facility] Addendum: 11/11/19 at 1347 by LYDIA MENDOZA RN Amended: Links added.
[2019-11-11 16:20] VITALS: BP 119/73
[2019-11-11 20:25] VITALS: BP 128/74
[2019-11-11] MEDS: ATORVASTATIN CALCIUM 20 MG TABLET PO SCH (21:00)
[2019-11-11] MEDS: INSULIN GLARGINE 100 UNITS/ML 10 ML VIAL SQ SCH (21:59)
[2019-11-11] MEDS ORDERED: TEMAZEPAM 7.5 MG CAPSULE PO ONE ×2 (22:15→22:19)
[2019-11-12] VITALS (7 sets, daily range): BP systolic 101–139; BP diastolic 56–76
[2019-11-12] MEDS: DOXYCYCLINE 100MG+NS 250ML 250 ML IV SCH (06:23)
[2019-11-12] MEDS: FUROSEMIDE 10 MG/ML 2ML VIAL IV SCH ×2 (06:23→06:50)
[2019-11-12] MEDS: AZITHROMYCIN 500MG+NS 250ML 250 ML IV SCH (06:23)
[2019-11-12] MEDS: INSULIN HUMULIN R 100 UNIT/ML 3ML SQ SCH ×7 (06:24→22:38)
[2019-11-12 06:28] LABS: BASOPHILS % (AUTO) 0.1 % (0.0-5.0); HEMATOCRIT 41.6 % (36-48); LYMPHOCYTES % (AUTO) 13.1 % (21.0-51.0); MEAN CORPUSCULAR HGB CONC 33.2 g/dL (32.0-36.0); MEAN CORPUSCULAR VOLUME 87.4 fL (79-99); MONOCYTES % (AUTO) 6.7 % (3.0-13.0); NEUTROPHILS % (AUTO) 79.4 % (40.0-77.0); PLATELET COUNT (AUTO) 253 K/uL (130-400); RED BLOOD CELL COUNT(AUTO) 4.76 MIL/uL (4.00-5.50); RED CELL DISTRIBUTION WIDTH 13.2 % (11.0-15.5); WHITE BLOOD COUNT (AUTO) 15.4 K/uL (4.8-10.8)
[2019-11-12 06:37] LABS: ALANINE AMINOTRANSFERASE 22 U/L (12-78); ASPARTATE AMINOTRANSFERASE 17 U/L (10-37); BILIRUBIN,TOTAL 0.5 mg/dL (0.2-1.0); CARBON DIOXIDE 28 mmol/L (21-32); CHLORIDE 106 mmol/L (101-111); CREATININE 0.8 mg/dL (0.5-1.5); GLOMERULAR FILTR. RATE CALC 75 mL/min (>60); GLUCOSE,RANDOM 126 mg/dL (70-105); LACTATE DEHYDROGENASE 167 U/L (81-234); POTASSIUM 3.3 mmol/L (3.5-5.1); SODIUM SERUM 141 mmol/L (136-145); TOTAL PROTEIN, SERUM 6.3 g/dL (6.0-8.3); UREA NITROGEN, BLOOD 26 mg/dL (7-18)
[2019-11-12] MEDS ORDERED: POTASSIUM CHLORIDE 20 MEQ ERTAB PO SCH (08:45)
[2019-11-12] MEDS: ZINC SULFATE 220 CAPSULE PO SCH (09:00)
[2019-11-12] MEDS: ACETYLCYSTEINE 600 MG CAPSULE PO SCH ×2 (09:00→21:00)
[2019-11-12] MEDS: LEVOTHYROXINE 50 MCG TABLET PO SCH (10:16)
[2019-11-12] MEDS: ONDANSETRON HCL 4 MG/2 ML VIAL IV PRN (10:16)
[2019-11-12] MEDS ORDERED: PHARMACY COMMUNICATION MISC SCH (11:45)
--- NOTE | 2019-11-12 12:55 | NUR ---
patient is not available for skilled PT evaluation.Procedure in progress Addendum: 11/12/19 at 1326 by HENRRY DICKINSON, PT PT Amended: Links added.
[2019-11-12] MEDS: CEFTRIAXONE SODIUM 1 GM IVP SCH ×2 (13:42→22:36)
[2019-11-12] MEDS: ATORVASTATIN CALCIUM 20 MG TABLET PO SCH (21:00)
[2019-11-12] MEDS: METOPROLOL TARTRATE 50 MG TAB PO SCH (22:35)
[2019-11-12] MEDS: ENOXAPARIN SODIUM 80 MG/0.8 ML SQ SCH (22:36)
[2019-11-12] MEDS: INSULIN GLARGINE 100 UNITS/ML 10 ML VIAL SQ SCH (22:38)
--- NOTE | 2019-11-13 | NUR ---
INSOMNIA PATIENT WITH C./O RESTLESSNESS AND BEING UNABLE TO SLEEP. ON-CALL DORA Toro NP CONTACTED AND INFORMED OF PTS CONCERN. ORDER GIVEN 1) RESTORIL 7.5MG PO X 1 DOSE NOW. ORDER READ BACK TO DORA Toro NP AND TRANSCRIBED. PATIENT CURRENTLY IN BED IN STABLE CONDITION, EASILY AROUSED, ABLE TO ABLE TO MAKE NEEDS KNOWN. NO C/O PAIN OR DISCOMFORT AT THIS TIME. CALL DEVICE WITHIN REACH WILL CONT. TO MONITOR.
[2019-11-13] MEDS ORDERED: TEMAZEPAM 7.5 MG CAPSULE PO ONE ×2 (00:45→00:54)
[2019-11-13 04:11] VITALS: BP 91/43
[2019-11-13 05:05] LABS: BASOPHILS % (AUTO) 0.2 % (0.0-5.0); EOSINOPHILS % (AUTO) 1.4 % (0.0-8.0); HEMATOCRIT 42.9 % (36-48); LYMPHOCYTES % (AUTO) 23.4 % (21.0-51.0); MEAN CORPUSCULAR HGB CONC 33.3 g/dL (32.0-36.0); MONOCYTES % (AUTO) 8.3 % (3.0-13.0); NEUTROPHILS % (AUTO) 65.9 % (40.0-77.0); PLATELET COUNT (AUTO) 251 K/uL (130-400); RED BLOOD CELL COUNT(AUTO) 4.93 MIL/uL (4.00-5.50); RED CELL DISTRIBUTION WIDTH 13.1 % (11.0-15.5); WHITE BLOOD COUNT (AUTO) 11.2 K/uL (4.8-10.8)
[2019-11-13 05:33] LABS: CREATININE 0.7 mg/dL (0.5-1.5); MAGNESIUM 1.9 mg/dL (1.80-2.40); POTASSIUM 3.1 mmol/L (3.5-5.1)
[2019-11-13] MEDS: AZITHROMYCIN 500MG+NS 250ML 250 ML IV SCH (05:53)
[2019-11-13] MEDS: LEVOTHYROXINE 50 MCG TABLET PO SCH ×2 (05:54→11:12)
[2019-11-13] MEDS: INSULIN HUMULIN R 100 UNIT/ML 3ML SQ SCH ×7 (05:54→20:40)
--- NOTE | 2019-11-13 08:30 | NUR ---
ASSESSMENT COMPLETED, PT COMPLAINTS OF BEING VERY SLEEPY STATED "THEY WERE IN AND OUT OR HERE ALL NIGHT AND I DID NOT GET ANY SLEEP" REFUSED TO TAKE MEDS RIGHT NOW AND DID NOT WANT TO EAT BREAKFAST AT THIS TIME, STATED PLEASE LET ME SLEEP BLOOD SUGAR WAS 89 VSS, ALSO STATED THAT SHE FELT NAUSEATED, SEE Maria Luisa FINKFRAN GIVEN IV. AND LEFT PT TO SLEEP. SHE STATED SHE WOULD TAKE HER MEDS LATER WHEN SHE DID FEEL LIKE EATING.
[2019-11-13] MEDS ORDERED: POTASSIUM CHLORIDE 20 MEQ ERTAB PO SCH (08:45)
[2019-11-13] MEDS ORDERED: ASPIRIN 81MG TAB.CHEW PO SCH (09:00)
[2019-11-13] MEDS: ISOSORBIDE MONO 30MG TAB SR PO SCH ×2 (09:00→11:12)
[2019-11-13 09:16] VITALS: BP 115/59
[2019-11-13] MEDS: CEFTRIAXONE SODIUM 1 GM IVP SCH ×2 (09:37→20:46)
[2019-11-13] MEDS: ONDANSETRON HCL 4 MG/2 ML VIAL IV PRN ×3 (09:47→23:04)
[2019-11-13] MEDS: METOPROLOL TARTRATE 50 MG TAB PO SCH ×2 (11:12→20:46)
[2019-11-13] MEDS: ACETYLCYSTEINE 600 MG CAPSULE PO SCH ×2 (11:12→20:46)
[2019-11-13] MEDS: ASCORBIC ACID 500 MG TAB PO SCH ×2 (11:13→15:22)
[2019-11-13] MEDS: ASPIRIN 81MG TAB.CHEW PO SCH (11:13)
[2019-11-13] MEDS: AMIODARONE HCL 200 MG TABLET PO SCH ×2 (11:13→15:22)
[2019-11-13 12:08] VITALS: BP 121/70
[2019-11-13] MEDS: ZINC SULFATE 220 CAPSULE PO SCH (15:23)
[2019-11-13] MEDS: FUROSEMIDE 10 MG/ML 2ML VIAL IV SCH (15:24)
[2019-11-13 16:00] VITALS: BP 125/71
[2019-11-13 19:51] VITALS: BP 141/67
[2019-11-13] MEDS: INSULIN GLARGINE 100 UNITS/ML 10 ML VIAL SQ SCH (20:41)
[2019-11-13] MEDS: ATORVASTATIN CALCIUM 20 MG TABLET PO SCH (20:46)
[2019-11-13 23:24] VITALS: BP 119/79
[2019-11-14 03:36] VITALS: BP 128/44
[2019-11-14] MEDS: INSULIN HUMULIN R 100 UNIT/ML 3ML SQ SCH ×7 (05:19→21:41)
[2019-11-14] MEDS: LEVOTHYROXINE 50 MCG TABLET PO SCH ×2 (06:02→10:28)
[2019-11-14 06:46] LABS: CREATININE 0.8 mg/dL (0.5-1.5); MAGNESIUM 1.9 mg/dL (1.80-2.40); POTASSIUM 4.2 mmol/L (3.5-5.1)
[2019-11-14 08:00] VITALS: BP 97/48
[2019-11-14] MEDS: CEFTRIAXONE SODIUM 1 GM IVP SCH ×2 (09:38→21:53)
[2019-11-14] MEDS: ONDANSETRON HCL 4 MG/2 ML VIAL IV PRN ×2 (09:49→21:38)
[2019-11-14] MEDS: FUROSEMIDE 10 MG/ML 2ML VIAL IV SCH (10:25)
[2019-11-14] MEDS: ASPIRIN 81MG TAB.CHEW PO SCH (10:26)
[2019-11-14] MEDS: ISOSORBIDE MONO 30MG TAB SR PO SCH (10:27)
[2019-11-14] MEDS: ASCORBIC ACID 500 MG TAB PO SCH (10:28)
[2019-11-14] MEDS: ACETYLCYSTEINE 600 MG CAPSULE PO SCH (10:28)
[2019-11-14] MEDS: ZINC SULFATE 220 CAPSULE PO SCH (10:28)
[2019-11-14] MEDS: AMIODARONE HCL 200 MG TABLET PO SCH (10:28)
[2019-11-14] MEDS: METOPROLOL TARTRATE 50 MG TAB PO SCH ×2 (10:29→21:53)
--- NOTE | 2019-11-14 10:40 | NUR ---
DR RUIZ HOSPITALIST BY BEDSIDE Orders for heart clinic consult. Informed MD of pt o2 sat 88-90% on room air. Pt placed on 2 LNC. Pt complains of sob at rest, reports feeling better with o2. MD orders for RT to perform ambulatory o2 assessment and possible home o2 with discharge.
--- NOTE | 2019-11-14 11:20 | NUR ---
CARDIOLOGY Consult called for follow up. Awaiting call back
[2019-11-14 11:29] VITALS: BP 126/79
[2019-11-14 12:00] VITALS: BP 110/62
--- NOTE | 2019-11-14 12:00 | NUR ---
RT Resp therapist by bedside for assessment
--- NOTE | 2019-11-14 13:11 | NUR ---
CARDIOLOGY Followed up with [facility], spoke with Tila. Awaiting call back
[2019-11-14] MEDS: LOSARTAN 50 MG TABLET PO SCH (15:30)
[2019-11-14 16:00] VITALS: BP 127/72
[2019-11-14] MEDS: FUROSEMIDE 20 MG TABLET PO SCH (18:02)
[2019-11-14 19:40] VITALS: BP 111/61
[2019-11-14] MEDS: INSULIN GLARGINE 100 UNITS/ML 10 ML VIAL SQ SCH (21:50)
[2019-11-14] MEDS: ATORVASTATIN CALCIUM 20 MG TABLET PO SCH (21:53)
[2019-11-15] VITALS (7 sets, daily range): BP systolic 101–140; BP diastolic 60–82
[2019-11-15] MEDS: INSULIN HUMULIN R 100 UNIT/ML 3ML SQ SCH ×7 (05:47→21:00)
[2019-11-15] MEDS: LEVOTHYROXINE 50 MCG TABLET PO SCH ×2 (06:11→08:56)
[2019-11-15] MEDS: FUROSEMIDE 20 MG TABLET PO SCH ×2 (06:11→18:33)
[2019-11-15 06:13] LABS: BASOPHILS % (AUTO) 0.2 % (0.0-5.0); LYMPHOCYTES % (AUTO) 29.3 % (21.0-51.0); MEAN CORPUSCULAR HGB CONC 33.7 g/dL (32.0-36.0); MEAN CORPUSCULAR VOLUME 86.1 fL (79-99); MONOCYTES % (AUTO) 6.8 % (3.0-13.0); NEUTROPHILS % (AUTO) 57.4 % (40.0-77.0); PLATELET COUNT (AUTO) 239 K/uL (130-400); RED BLOOD CELL COUNT(AUTO) 4.76 MIL/uL (4.00-5.50); WHITE BLOOD COUNT (AUTO) 11.5 K/uL (4.8-10.8)
[2019-11-15 06:20] LABS: CARBON DIOXIDE 31 mmol/L (21-32); CHLORIDE 104 mmol/L (101-111); CREATININE 0.8 mg/dL (0.5-1.5); GLOMERULAR FILTR. RATE CALC 75 mL/min (>60); GLUCOSE,RANDOM 96 mg/dL (70-105); POTASSIUM 3.2 mmol/L (3.5-5.1); SODIUM SERUM 140 mmol/L (136-145); UREA NITROGEN, BLOOD 16 mg/dL (7-18)
[2019-11-15] MEDS ORDERED: LIDOCAINE HCL-MPF 1% 2ML VIAL IV PRN (06:30)
[2019-11-15] MEDS ORDERED: POTASSIUM CHLORIDE 20 MEQ ERTAB PO PRN (06:30)
[2019-11-15] MEDS ORDERED: POTASSIUM CHLORIDE 20MEQ/100ML 100 ML IV PRN (06:30)
[2019-11-15] MEDS ORDERED: POTASSIUM CHLORIDE 10% ELIXIR 20 MEQ/15 ML UDCUP PO PRN (06:30)
[2019-11-15] MEDS: POTASSIUM CHLORIDE 10% ELIXIR 20 MEQ/15 ML UDCUP ONE ×2 (06:37→06:58)
[2019-11-15] MEDS ORDERED: POTASSIUM CHLORIDE 20 MEQ ERTAB PO ONE (06:55)
[2019-11-15] MEDS: ONDANSETRON HCL 4 MG/2 ML VIAL IV PRN (08:27)
[2019-11-15] MEDS: CEFTRIAXONE SODIUM 1 GM IVP SCH ×2 (08:30→21:20)
[2019-11-15] MEDS: ASPIRIN 81MG TAB.CHEW PO SCH (08:55)
[2019-11-15] MEDS: LOSARTAN 50 MG TABLET PO SCH (08:56)
[2019-11-15] MEDS: ISOSORBIDE MONO 30MG TAB SR PO SCH (08:56)
[2019-11-15] MEDS: METOPROLOL TARTRATE 50 MG TAB PO SCH ×2 (08:57→21:20)
[2019-11-15] MEDS: AMIODARONE HCL 200 MG TABLET PO SCH (08:57)
[2019-11-15] MEDS ORDERED: POTASSIUM CHLORIDE 20 MEQ ERTAB PO SCH (09:00)
[2019-11-15] MEDS ORDERED: MAGNESIUM 2GM PREMIX 50ML 50 ML IV SCH (09:00)
[2019-11-15] MEDS: INSULIN GLARGINE 100 UNITS/ML 10 ML VIAL SQ SCH (21:00)
[2019-11-15] MEDS: ATORVASTATIN CALCIUM 20 MG TABLET PO SCH (21:20)
[2019-11-16 03:32] VITALS: BP 137/57
[2019-11-16 04:52] LABS: POTASSIUM 3.9 mmol/L (3.5-5.1); THYROID STIMULATING HORMONE 31.77 uIU/mL (0.36-3.74)
[2019-11-16] MEDS: LEVOTHYROXINE 50 MCG TABLET PO SCH (05:28)
[2019-11-16] MEDS: INSULIN HUMULIN R 100 UNIT/ML 3ML SQ SCH ×7 (05:57→22:04)
[2019-11-16 06:00] VITALS: BP 128/74
[2019-11-16 06:34] LABS: CREATININE 0.9 mg/dL (0.5-1.5); MAGNESIUM 1.8 mg/dL (1.80-2.40)
[2019-11-16 07:41] VITALS: BP 117/64
[2019-11-16] MEDS: LOSARTAN 50 MG TABLET PO SCH (09:00)
[2019-11-16] MEDS: ISOSORBIDE MONO 30MG TAB SR PO SCH (09:00)
[2019-11-16] MEDS: ASPIRIN 81MG TAB.CHEW PO SCH (10:05)
[2019-11-16] MEDS: CEFTRIAXONE SODIUM 1 GM IVP SCH ×2 (10:05→22:02)
[2019-11-16] MEDS: METOPROLOL TARTRATE 50 MG TAB PO SCH ×2 (10:05→22:02)
[2019-11-16] MEDS: AMIODARONE HCL 200 MG TABLET PO SCH (10:05)
[2019-11-16] MEDS: FUROSEMIDE 20 MG TABLET PO SCH ×2 (10:05→22:02)
[2019-11-16 10:47] VITALS: BP 106/63
[2019-11-16 15:32] VITALS: BP 99/58
[2019-11-16 20:41] VITALS: BP 140/76
[2019-11-16] MEDS: ATORVASTATIN CALCIUM 20 MG TABLET PO SCH (22:02)
[2019-11-16] MEDS: INSULIN GLARGINE 100 UNITS/ML 10 ML VIAL SQ SCH (22:05)
[2019-11-17] VITALS (7 sets, daily range): BP systolic 95–122; BP diastolic 51–61
[2019-11-17 05:58] LABS: BASOPHILS % (AUTO) 0.4 % (0.0-5.0); EOSINOPHILS % (AUTO) 5.4 % (0.0-8.0); HEMATOCRIT 43.6 % (36-48); LYMPHOCYTES % (AUTO) 26.7 % (21.0-51.0); MEAN CORPUSCULAR HEMOGLOBIN 29.7 pg (27.0-33.0); MEAN CORPUSCULAR HGB CONC 33.9 g/dL (32.0-36.0); MEAN CORPUSCULAR VOLUME 87.4 fL (79-99); MONOCYTES % (AUTO) 6.9 % (3.0-13.0); NEUTROPHILS % (AUTO) 58.9 % (40.0-77.0); PLATELET COUNT (AUTO) 284 K/uL (130-400); RED BLOOD CELL COUNT(AUTO) 4.99 MIL/uL (4.00-5.50); RED CELL DISTRIBUTION WIDTH 13.6 % (11.0-15.5)
[2019-11-17 06:22] LABS: CREATININE 0.9 mg/dL (0.5-1.5); POTASSIUM 4.3 mmol/L (3.5-5.1)
[2019-11-17] MEDS: LEVOTHYROXINE 50 MCG TABLET PO SCH (06:38)
[2019-11-17] MEDS: INSULIN HUMULIN R 100 UNIT/ML 3ML SQ SCH ×7 (06:38→21:00)
[2019-11-17] MEDS: FUROSEMIDE 20 MG TABLET PO SCH ×2 (08:58→22:50)
[2019-11-17] MEDS: ASPIRIN 81MG TAB.CHEW PO SCH (08:58)
[2019-11-17] MEDS: CEFTRIAXONE SODIUM 1 GM IVP SCH ×2 (08:58→22:49)
[2019-11-17] MEDS: AMIODARONE HCL 200 MG TABLET PO SCH (08:58)
[2019-11-17] MEDS: METOPROLOL TARTRATE 50 MG TAB PO SCH ×2 (08:59→22:50)
[2019-11-17] MEDS: ISOSORBIDE MONO 30MG TAB SR PO SCH (08:59)
[2019-11-17] MEDS: LOSARTAN 50 MG TABLET PO SCH (08:59)
[2019-11-17] MEDS: ONDANSETRON HCL 4 MG/2 ML VIAL IV PRN (09:16)
[2019-11-17] MEDS ORDERED: SODIUM CHLORIDE 0.9% 250 ML IV ONE (09:41)
[2019-11-17] MEDS ORDERED: INSULIN GLARGINE 100 UNITS/ML 10 ML VIAL SQ SCH (21:00)
[2019-11-17] MEDS ORDERED: LEVOTHYROXINE 150 MCG TABLET ONE (22:36)
[2019-11-17] MEDS: ATORVASTATIN CALCIUM 20 MG TABLET PO SCH (22:50)
[2019-11-18 03:51] VITALS: BP 92/59
[2019-11-18] MEDS ORDERED: LEVOTHYROXINE 75 MCG TABLET PO SCH (06:30)
[2019-11-18] MEDS: INSULIN HUMULIN R 100 UNIT/ML 3ML SQ SCH ×6 (06:47→17:00)
[2019-11-18] MEDS: ASPIRIN 81MG TAB.CHEW PO SCH (08:36)
[2019-11-18] MEDS: CEFTRIAXONE SODIUM 1 GM IVP SCH (08:36)
[2019-11-18 08:37] VITALS: BP 112/66
[2019-11-18] MEDS: METOPROLOL TARTRATE 50 MG TAB PO SCH (08:37)
[2019-11-18] MEDS: LOSARTAN 50 MG TABLET PO SCH (08:37)
[2019-11-18] MEDS: FUROSEMIDE 20 MG TABLET PO SCH (08:37)
[2019-11-18] MEDS: ISOSORBIDE MONO 30MG TAB SR PO SCH (08:37)
[2019-11-18] MEDS: AMIODARONE HCL 200 MG TABLET PO SCH (08:37)
[2019-11-18] MEDS: ONDANSETRON HCL 4 MG/2 ML VIAL IV PRN (08:41)
[2019-11-18 11:25] VITALS: BP 91/53
[2019-11-18 12:56] LABS: BASOPHILS % (AUTO) 0.3 % (0.0-5.0); EOSINOPHILS % (AUTO) 4.2 % (0.0-8.0); HEMATOCRIT 43.4 % (36-48); LYMPHOCYTES % (AUTO) 18.3 % (21.0-51.0); MEAN CORPUSCULAR HEMOGLOBIN 29.3 pg (27.0-33.0); MEAN CORPUSCULAR HGB CONC 33.2 g/dL (32.0-36.0); MEAN CORPUSCULAR VOLUME 88.4 fL (79-99); MONOCYTES % (AUTO) 7.4 % (3.0-13.0); PLATELET COUNT (AUTO) 274 K/uL (130-400); RED BLOOD CELL COUNT(AUTO) 4.91 MIL/uL (4.00-5.50); RED CELL DISTRIBUTION WIDTH 13.6 % (11.0-15.5); WHITE BLOOD COUNT (AUTO) 10.9 K/uL (4.8-10.8)
[2019-11-18 13:07] LABS: POTASSIUM 4.4 mmol/L (3.5-5.1)
[2019-11-18 13:12] LABS: BILIRUBIN,TOTAL 0.4 mg/dL (0.2-1.0); TOTAL PROTEIN, SERUM 6.4 g/dL (6.0-8.3)
--- NOTE | 2019-11-18 17:00 | NUR ---
[facility] THE FORMULA CLERK FROM [facility] CAME AND EXPLAINED HOW TO PUT ON THE [facility] WELL PUTTING VEST ON AND KEEP IT ON TO GO HOME. PT UNDERSTOOD INSTRUCTIONS AND IS NOW WEARING [facility].
--- NOTE | 2019-11-18 17:00 | NUR ---
DISCHARGE WITH [facility], FITTED AT BEDSIDE Addendum: 11/19/19 at 0834 by LYDIA MENDOZA RN CM Amended: Links added.
--- NOTE | 2019-11-18 17:28 | NUR ---
D/C PT IS A/A X 3 D/C VIA WHEELCHAIR IN PVT CAR GOING HOME. PT GIVEN D/C INSTRUCTIONS ALONG WITH INSTRUCTIONS TO F/U WITH PRIMARY AND CARDIOLOGY.PT WAS WEARING [facility] VIA HOME.
== END 2019-11-18 17:30 | disposition home or self-care (01) | DRG 291 ==
LOC: EDH 01:27 → EDHIP 04:56 → 2DH 09:05 → 4BH 11-11 07:44
PROVIDERS: ADMIT Internal Medicine; ATTEND Internal Medicine
DX: I11.0 Hypertensive heart disease with heart failure (principal); J96.01 Acute respiratory failure with hypoxia; J18.9 Pneumonia, unspecified organism; J81.0 Acute pulmonary edema; J44.0 Chronic obstructive pulmonary disease with (acute) lower respiratory infection; J44.1 Chronic obstructive pulmonary disease with (acute) exacerbation; I25.10 Atherosclerotic heart disease of native coronary artery without angina pectoris; E11.65 Type 2 diabetes mellitus with hyperglycemia; E78.5 Hyperlipidemia, unspecified; I50.23 Acute on chronic systolic (congestive) heart failure; I25.5 Ischemic cardiomyopathy; E66.9 Obesity, unspecified; Z68.34 Body mass index [BMI] 34.0-34.9, adult; E87.6 Hypokalemia; D72.828 Other elevated white blood cell count; I42.0 Dilated cardiomyopathy; F17.200 Nicotine dependence, unspecified, uncomplicated; Z20.828 Contact with and (suspected) exposure to other viral communicable diseases; E03.9 Hypothyroidism, unspecified; I34.0 Nonrheumatic mitral (valve) insufficiency; Z91.013 Allergy to seafood; I25.2 Old myocardial infarction; Z95.1 Presence of aortocoronary bypass graft; Z79.4 Long term (current) use of insulin; Z79.890 Hormone replacement therapy; Z91.19 Patient's noncompliance with other medical treatment and regimen
CPT/HCPCS: 36415; 71045; 71275; 80048; 80053; 82728; 82948; 83036; 83605; 83615; 83735; 83880; 84145; 84439; 84443; 84481; 84484; 85025; 85378; 85610; 85730; 86140; 87040; 87426; 93005; 93306; 93356; 94760; 99291; G0378; J0456; J0696; J1100; J1650; J1815; J1940; J2405; J2920; J3475; J3490; J7050; Q9967; U0003

== ENCOUNTER 2020-02-01 06:34 | Inpatient (IN) | payer MEDICARE ==
[~2020-02-01] VITALS: Ht 160 cm; Wt 79.3 kg
[~2020-02-01 06:34] MED LIST changes: -ATOR20TA65 PO; +ATOR40TA71 PO; +CARV3.12 PO; -CEPH500B PO; +FURO40TA5 PO; -Isosorbide Mono 30MG Tab Sr PO; -LEVO50TA11 PO; -METO50 PO; +SACU1TAB PO; +SPIR25TA6 PO
[2020-02-01 06:59] LABS: BASOPHILS % (AUTO) 0.5 % (0.0-5.0); EOSINOPHILS % (AUTO) 2.6 % (0.0-8.0); HEMATOCRIT 45.5 % (36-48); LYMPHOCYTES % (AUTO) 12.1 % (21.0-51.0); MEAN CORPUSCULAR HEMOGLOBIN 29.2 pg (27.0-33.0); MEAN CORPUSCULAR VOLUME 88.5 fL (79-99); NEUTROPHILS % (AUTO) 80.2 % (40.0-77.0); PLATELET COUNT (AUTO) 227 K/uL (130-400); RED BLOOD CELL COUNT(AUTO) 5.14 MIL/uL (4.00-5.50); RED CELL DISTRIBUTION WIDTH 13.1 % (11.0-15.5); WHITE BLOOD COUNT (AUTO) 10.9 K/uL (4.8-10.8)
[2020-02-01 07:09] LABS: INR 0.95 (0.85-1.15); PARTIAL THROMBOPLASTIN TIME 26.4 SEC (26.3-35.5); PROTHROMBIN TIME 10.3 SEC (9.6-11.6)
[2020-02-01 07:11] LABS: ALBUMIN 3.6 g/dL (3.5-5.0); BILIRUBIN,TOTAL 0.5 mg/dL (0.2-1.0); CREATININE 1.1 mg/dL (0.5-1.5); POTASSIUM 3.2 mmol/L (3.5-5.1); TOTAL PROTEIN, SERUM 6.8 g/dL (6.0-8.3)
[2020-02-01] MEDS ORDERED: ONDANSETRON HCL 4 MG/2 ML VIAL ONE ×2 (08:05→08:28)
[2020-02-01] MEDS ORDERED: SODIUM CHLORIDE 0.9% 50 ML IV ONE ×2 (08:05→09:19)
[2020-02-01] MEDS ORDERED: AZITHROMYCIN 500MG+NS 250ML 250 ML IV ONE (08:28)
[2020-02-01] MEDS ORDERED: INSULIN HUMULIN R 100 UNIT/ML 3ML ONE (08:29)
[2020-02-01] MEDS ORDERED: CEFTRIAXONE SODIUM 1 GM ONE (08:29)
[2020-02-01] MEDS ORDERED: POTASSIUM CHLORIDE 20MEQ/100ML 100 ML IV SCH (08:45)
[2020-02-01 08:46] LABS: ABG BASE EXCESS -1.1 mmol/L (-2.0-3.0); ABG HCO3 25.2 mmol/L (21.0-28.0); ABG OXYGEN SATURATION 97.4 % (95.0-99.0); ABG PCO2 48 mmHg (32-45)
[2020-02-01] MEDS ORDERED: POTASSIUM CHLORIDE 30 MEQ in SODIUM CHLORIDE 0.9% 100 ML IV SCH (09:00)
[2020-02-01] MEDS ORDERED: POTASSIUM CHLORIDE 10MEQ/100ML 100 ML IV SCH (09:00)
[2020-02-01] MEDS ORDERED: POTASSIUM CHLORIDE 20 MEQ ERTAB PO ONE (09:10)
[2020-02-01 09:16] LABS: CRP QUANTITATIVE 10.6 mg/L (0.00-9.0); MAGNESIUM 1.7 mg/dL (1.80-2.40)
[2020-02-01] MEDS ORDERED: DEXAMETHASONE SOD PHOSPHATE 10MG/ML 1ML VIAL ONE (10:11)
[2020-02-01] MEDS ORDERED: MAGNESIUM 2GM PREMIX 50ML 50 ML IV ONE (10:11)
[2020-02-01] MEDS ORDERED: CEFTRIAXONE SODIUM 1 GM IVP SCH (12:30)
[2020-02-01] MEDS ORDERED: ACETAMINOPHEN 325 MG TAB PO PRN ×2 (12:30)
[2020-02-01] MEDS ORDERED: MORPHINE SULFATE 2 MG/ML 1ML SYG IV PRN (12:30)
[2020-02-01] MEDS ORDERED: AZITHROMYCIN 500MG+NS 250ML 250 ML IV SCH (12:30)
[2020-02-01] MEDS ORDERED: MAGNESIUM 2GM PREMIX 50ML 50 ML IV PRN (12:30)
[2020-02-01] MEDS ORDERED: LIDOCAINE HCL-MPF 1% 2ML VIAL IV PRN (12:30)
[2020-02-01] MEDS ORDERED: POTASSIUM CHLORIDE 10% ELIXIR 20 MEQ/15 ML UDCUP PO PRN (12:30)
[2020-02-01] MEDS ORDERED: POTASSIUM CHLORIDE 10MEQ/100ML 100 ML IV PRN (12:30)
[2020-02-01] MEDS ORDERED: BENZONATATE 100 MG CAPSULE PO ONE (13:35)
[2020-02-01] MEDS ORDERED: IOHEXOL 350 MG/ML 100ML INFUS..BTL IV ONE (13:47)
[2020-02-01] MEDS: BENZONATATE 100 MG CAPSULE PO SCH ×2 (14:00→21:30)
[2020-02-01] MEDS: INSULIN HUMULIN R 100 UNIT/ML 3ML SQ SCH ×2 (16:30→21:30)
[2020-02-01 16:43] VITALS: BP 126/67
[2020-02-01] MEDS ORDERED: CLOP75TA32 PO (17:35)
[2020-02-01] MEDS ORDERED: LEVO75TA10 PO (17:35)
[2020-02-01] MEDS ORDERED: METO-409 PO (17:35)
[2020-02-01] MEDS ORDERED: FURO20TA4 PO (17:35)
[2020-02-01] MEDS ORDERED: ISOS30TA6 PO (17:35)
[2020-02-01 20:04] VITALS: BP 122/71
[2020-02-01] MEDS ORDERED: SACUBITRIL PO SCH (21:00)
[2020-02-01] MEDS ORDERED: INSULIN GLARGINE 100 UNITS/ML 10 ML VIAL SQ SCH (21:00)
[2020-02-01] MEDS ORDERED: FUROSEMIDE 10 MG/ML 4ML VIAL IV SCH (21:00)
[2020-02-01] MEDS ORDERED: ENOXAPARIN SODIUM 40 MG/0.4 ML SYRINGE SQ SCH (21:00)
[2020-02-01] MEDS ORDERED: CARVEDILOL 3.125 MG TABLET PO SCH (21:00)
[2020-02-01] MEDS ORDERED: VALSARTAN PO SCH (21:00)
[2020-02-01] MEDS: FUROSEMIDE 10 MG/ML 4ML VIAL IV SCH (21:30)
[2020-02-01 23:37] VITALS: BP 113/56
[2020-02-02 03:46] VITALS: BP 98/58
[2020-02-02 05:24] LABS: BASOPHILS % (AUTO) 0.1 % (0.0-5.0); HEMATOCRIT 40.8 % (36-48); LYMPHOCYTES % (AUTO) 6.1 % (21.0-51.0); MEAN CORPUSCULAR HEMOGLOBIN 29.6 pg (27.0-33.0); MEAN CORPUSCULAR HGB CONC 34.1 g/dL (32.0-36.0); MONOCYTES % (AUTO) 4.3 % (3.0-13.0); NEUTROPHILS % (AUTO) 88.9 % (40.0-77.0); PLATELET COUNT (AUTO) 215 K/uL (130-400); RED BLOOD CELL COUNT(AUTO) 4.69 MIL/uL (4.00-5.50); RED CELL DISTRIBUTION WIDTH 13.2 % (11.0-15.5); WHITE BLOOD COUNT (AUTO) 13.7 K/uL (4.8-10.8)
[2020-02-02] MEDS: LEVOTHYROXINE 75 MCG TABLET PO SCH (05:52)
[2020-02-02] MEDS: INSULIN HUMULIN R 100 UNIT/ML 3ML SQ SCH ×4 (05:54→20:41)
[2020-02-02 05:57] LABS: ALANINE AMINOTRANSFERASE 37 U/L (12-78); ALBUMIN 3.1 g/dL (3.5-5.0); ASPARTATE AMINOTRANSFERASE 31 U/L (10-37); BILIRUBIN,TOTAL 0.5 mg/dL (0.2-1.0); CARBON DIOXIDE 28 mmol/L (21-32); CHLORIDE 104 mmol/L (101-111); GLOMERULAR FILTR. RATE CALC 58 mL/min (>60); GLUCOSE,RANDOM 209 mg/dL (70-105); POTASSIUM 3.7 mmol/L (3.5-5.1); SODIUM SERUM 143 mmol/L (136-145); TOTAL PROTEIN, SERUM 6.7 g/dL (6.0-8.3); UREA NITROGEN, BLOOD 21 mg/dL (7-18)
[2020-02-02] MEDS: FUROSEMIDE 10 MG/ML 4ML VIAL IV SCH ×3 (05:59→20:30)
[2020-02-02] MEDS ORDERED: SPIRONOLACTONE 25 MG TAB PO SCH (09:00)
[2020-02-02] MEDS: CLOPIDOGREL BISULFATE 75 MG TAB PO SCH (09:08)
[2020-02-02] MEDS: AMIODARONE HCL 200 MG TABLET PO SCH (09:08)
[2020-02-02] MEDS: METOPROLOL SUCCINATE 50 MG TAB.SR.24H PO SCH (09:08)
[2020-02-02] MEDS: ISOSORBIDE MONO 30MG TAB SR PO SCH (09:08)
[2020-02-02] MEDS: ASPIRIN 81MG TAB.CHEW PO SCH (09:08)
[2020-02-02] MEDS: BENZONATATE 100 MG CAPSULE PO SCH ×3 (09:08→20:29)
[2020-02-02] MEDS: ENOXAPARIN SODIUM 40 MG/0.4 ML SYRINGE SQ SCH (09:09)
[2020-02-02] MEDS: FAMOTIDINE/PF 20 MG/2 ML VIAL IV SCH (09:09)
[2020-02-02 09:14] VITALS: BP 128/65
[2020-02-02] MEDS: FLUOXETINE HCL 20 MG CAPSULE PO SCH (11:57)
[2020-02-02 12:00] VITALS: BP 100/54
--- NOTE | 2020-02-02 15:18 | NUR ---
DCP CM met with pt in room this morning discussed dc plans. Pt is independent prior to admission, lives at home with son(43 y/o) and grandson (7 y/o). Denies any equipments/services. Feels safe to go back home, does not drives, son able to assist with transportation and needs as necessary. DC plan to home once stable. CM to continue to follow up. Addendum: 02/02/20 at 1520 by EDWIN CUMMINGS LVN CM Amended: Links added.
[2020-02-02 16:18] VITALS: BP 120/82
[2020-02-02 20:30] VITALS: BP 114/56
[2020-02-02] MEDS: INSULIN GLARGINE 100 UNITS/ML 10 ML VIAL SQ SCH (20:42)
[2020-02-02] MEDS: ONDANSETRON HCL 4 MG/2 ML VIAL IV PRN (22:44)
[2020-02-02 23:40] VITALS: BP 113/55
[2020-02-03 04:36] VITALS: BP 120/65
[2020-02-03 05:31] LABS: BASOPHILS % (AUTO) 0.3 % (0.0-5.0); EOSINOPHILS % (AUTO) 1.5 % (0.0-8.0); HEMATOCRIT 40.2 % (36-48); LYMPHOCYTES % (AUTO) 22.2 % (21.0-51.0); MEAN CORPUSCULAR HEMOGLOBIN 29.6 pg (27.0-33.0); MEAN CORPUSCULAR HGB CONC 33.8 g/dL (32.0-36.0); MEAN CORPUSCULAR VOLUME 87.4 fL (79-99); MONOCYTES % (AUTO) 5.7 % (3.0-13.0); NEUTROPHILS % (AUTO) 69.7 % (40.0-77.0); PLATELET COUNT (AUTO) 233 K/uL (130-400); RED CELL DISTRIBUTION WIDTH 13.2 % (11.0-15.5); WHITE BLOOD COUNT (AUTO) 11.6 K/uL (4.8-10.8)
[2020-02-03] MEDS: FUROSEMIDE 10 MG/ML 4ML VIAL IV SCH ×3 (05:54→20:32)
[2020-02-03] MEDS: LEVOTHYROXINE 75 MCG TABLET PO SCH (05:54)
[2020-02-03 05:58] LABS: ALBUMIN 3.2 g/dL (3.5-5.0); BILIRUBIN,TOTAL 0.6 mg/dL (0.2-1.0); CRP QUANTITATIVE 5.8 mg/L (0.00-9.0); POTASSIUM 3.1 mmol/L (3.5-5.1); TOTAL PROTEIN, SERUM 6.5 g/dL (6.0-8.3)
[2020-02-03] MEDS: INSULIN HUMULIN R 100 UNIT/ML 3ML SQ SCH ×4 (06:00→20:43)
[2020-02-03] MEDS: POTASSIUM CHLORIDE 20 MEQ ERTAB PO PRN ×3 (06:03→11:38)
[2020-02-03] MEDS: AMIODARONE HCL 200 MG TABLET PO SCH (08:48)
[2020-02-03] MEDS: ISOSORBIDE MONO 30MG TAB SR PO SCH (08:48)
[2020-02-03] MEDS: FAMOTIDINE/PF 20 MG/2 ML VIAL IV SCH (08:48)
[2020-02-03] MEDS: METOPROLOL SUCCINATE 50 MG TAB.SR.24H PO SCH (08:48)
[2020-02-03] MEDS: ASPIRIN 81MG TAB.CHEW PO SCH (08:48)
[2020-02-03] MEDS: ENOXAPARIN SODIUM 40 MG/0.4 ML SYRINGE SQ SCH (08:50)
[2020-02-03] MEDS: CLOPIDOGREL BISULFATE 75 MG TAB PO SCH (08:50)
[2020-02-03] MEDS: FLUOXETINE HCL 20 MG CAPSULE PO SCH (08:51)
[2020-02-03] MEDS: BENZONATATE 100 MG CAPSULE PO SCH ×3 (08:51→20:33)
[2020-02-03 09:10] VITALS: BP 121/63
[2020-02-03 12:29] VITALS: BP 113/59
[2020-02-03 18:24] VITALS: BP 107/59
[2020-02-03] MEDS: ONDANSETRON HCL 4 MG/2 ML VIAL IV PRN (20:32)
[2020-02-03 20:40] VITALS: BP 125/56
[2020-02-03] MEDS: INSULIN GLARGINE 100 UNITS/ML 10 ML VIAL SQ SCH (20:43)
[2020-02-04 01:33] VITALS: BP 107/56
[2020-02-04 04:01] VITALS: BP 100/51
[2020-02-04] MEDS: LEVOTHYROXINE 75 MCG TABLET PO SCH (05:04)
[2020-02-04] MEDS: FUROSEMIDE 10 MG/ML 4ML VIAL IV SCH (05:04)
[2020-02-04] MEDS: INSULIN HUMULIN R 100 UNIT/ML 3ML SQ SCH (05:13)
[2020-02-04 05:54] LABS: BASOPHILS % (AUTO) 0.6 % (0.0-5.0); EOSINOPHILS % (AUTO) 4.1 % (0.0-8.0); HEMATOCRIT 43.9 % (36-48); MEAN CORPUSCULAR HEMOGLOBIN 29.3 pg (27.0-33.0); MEAN CORPUSCULAR HGB CONC 33.7 g/dL (32.0-36.0); MEAN CORPUSCULAR VOLUME 86.9 fL (79-99); MONOCYTES % (AUTO) 8.3 % (3.0-13.0); NEUTROPHILS % (AUTO) 53.5 % (40.0-77.0); PLATELET COUNT (AUTO) 272 K/uL (130-400); RED BLOOD CELL COUNT(AUTO) 5.05 MIL/uL (4.00-5.50); RED CELL DISTRIBUTION WIDTH 13.2 % (11.0-15.5); WHITE BLOOD COUNT (AUTO) 8.1 K/uL (4.8-10.8)
[2020-02-04 06:19] LABS: ALBUMIN 3.2 g/dL (3.5-5.0); BILIRUBIN,TOTAL 0.6 mg/dL (0.2-1.0); CREATININE 1.1 mg/dL (0.5-1.5); CRP QUANTITATIVE 12.6 mg/L (0.00-9.0); TOTAL PROTEIN, SERUM 6.9 g/dL (6.0-8.3)
[2020-02-04] MEDS: POTASSIUM CHLORIDE 20 MEQ ERTAB PO PRN (06:28)
[2020-02-04 08:33] VITALS: BP 126/66
[2020-02-04] MEDS: FLUOXETINE HCL 20 MG CAPSULE PO SCH (09:00)
[2020-02-04] MEDS: ENOXAPARIN SODIUM 40 MG/0.4 ML SYRINGE SQ SCH (09:00)
[2020-02-04] MEDS: ISOSORBIDE MONO 30MG TAB SR PO SCH (09:29)
[2020-02-04] MEDS: AMIODARONE HCL 200 MG TABLET PO SCH (09:29)
[2020-02-04] MEDS: CLOPIDOGREL BISULFATE 75 MG TAB PO SCH (09:30)
[2020-02-04] MEDS: ASPIRIN 81MG TAB.CHEW PO SCH (09:30)
[2020-02-04] MEDS: METOPROLOL SUCCINATE 50 MG TAB.SR.24H PO SCH (09:30)
[2020-02-04] MEDS: BENZONATATE 100 MG CAPSULE PO SCH (09:30)
[2020-02-04] MEDS: FAMOTIDINE/PF 20 MG/2 ML VIAL IV SCH (09:31)
[2020-02-04] MEDS ORDERED: PNEUMOCOCCAL VACCINE POLYVALENT 0.5 ML/VIAL [PPV] IM ONE (12:00)
[2020-02-04] MEDS ORDERED: FLU VACC QS2020-21(6MOS UP)/PF 60 MCG/0.5 ML ML IM ONE (12:15)
[2020-02-04] MEDS ORDERED: PNEUMOCOCCAL VACCINE POLYVALENT 0.5 ML/VIAL [PPV] IM SCH (12:15)
[2020-02-04] MEDS ORDERED: FLU VACC QS2020-21(6MOS UP)/PF 60 MCG/0.5 ML ML IM SCH (12:15)
--- NOTE | 2020-02-04 12:47 | NUR ---
PT STATED UNDERSTANDING OF DISCHARGE INSTRUCTIONS, IV(S) REMOVED WITHOUT DIFFICULTY OR COMPLICATIONS, PT DISCHARGED BY W/C IN GOOD CONDITION ACCOMPANIED BY STAFF AND FAMILY
--- NOTE | 2020-02-05 13:23 | NUR ---
Transitional Care - Post Discharge Note Spoke with patient's daughter, Jennifer Cole, at number listed. As per Ms Cole, the patient is doing well. She states she has a follow up with her PCP tomorrow via telehealth, and is aware of a pulmonary appointment in [place] but that there is no way she can take her mother to [place] to keep that appoinment. She states she can go to a local granulator operator but cannot go all the way to [place]. I called discharging provider, and she told me to advise the patient to discuss this matter with her PCP. I attempted to call Ms Cole again, but she did not answer. I left a voicemail requesting a call back. Addendum: 02/05/20 at 1330 by MARTIN MEDEL Amended: Links added.
== END 2020-02-04 13:16 | disposition home or self-care (01) | DRG 291 ==
LOC: EDH 06:34 → EDHIP 12:29 → 4BH 16:43
PROVIDERS: ADMIT Family Medicine; ATTEND Family Medicine
PROC: 5A09357 Assistance with Respiratory Ventilation, Less than 24 Consecutive Hours, Continuous Positive Airway Pressure (ICD-10-PCS; 2020-02-01)
PROC: 3E02340 Introduction of Influenza Vaccine into Muscle, Percutaneous Approach (ICD-10-PCS; principal; 2020-02-04)
PROC: 3E0234Z Introduction of Serum, Toxoid and Vaccine into Muscle, Percutaneous Approach (ICD-10-PCS; 2020-02-04)
DX: I11.0 Hypertensive heart disease with heart failure (principal); J96.21 Acute and chronic respiratory failure with hypoxia; I50.23 Acute on chronic systolic (congestive) heart failure; I25.10 Atherosclerotic heart disease of native coronary artery without angina pectoris; Z20.828 Contact with and (suspected) exposure to other viral communicable diseases; E83.42 Hypomagnesemia; E87.6 Hypokalemia; F17.200 Nicotine dependence, unspecified, uncomplicated; E11.65 Type 2 diabetes mellitus with hyperglycemia; F32.9 Major depressive disorder, single episode, unspecified; I25.2 Old myocardial infarction; Z79.4 Long term (current) use of insulin; Z79.899 Other long term (current) drug therapy; Z23 Encounter for immunization; Z79.82 Long term (current) use of aspirin; Z83.3 Family history of diabetes mellitus; Z82.49 Family history of ischemic heart disease and other diseases of the circulatory system; Z91.013 Allergy to seafood
CPT/HCPCS: 36415; 36600; 71045; 71275; 80053; 82550; 82728; 82803; 82948; 83605; 83615; 83735; 83880; 84145; 84484; 85025; 85378; 85610; 85730; 86140; 86900; 86901; 87040; 87426; 90732; 93005; 94660; 94760; 99291; G0378; J0456; J0696; J1100; J1650; J1815; J1940; J2405; J3475; J3480; J3490; Q2035; Q9967; U0003

== ENCOUNTER 2020-05-12 07:20 | Day surgery (SDC) | payer MEDICARE ==
[2020-05-10 10:34] LABS: BASOPHILS % (AUTO) 0.7 % (0.0-5.0); EOSINOPHILS % (AUTO) 7.2 % (0.0-8.0); HEMATOCRIT 39.8 % (36-48); LYMPHOCYTES % (AUTO) 26.7 % (21.0-51.0); MEAN CORPUSCULAR HGB CONC 33.9 g/dL (32.0-36.0); MEAN CORPUSCULAR VOLUME 88.4 fL (79-99); MONOCYTES % (AUTO) 7.3 % (3.0-13.0); PLATELET COUNT (AUTO) 244 K/uL (130-400); RED CELL DISTRIBUTION WIDTH 13.1 % (11.0-15.5); WHITE BLOOD COUNT (AUTO) 7.3 K/uL (4.8-10.8)
[2020-05-10 10:48] LABS: CREATININE 1.3 mg/dL (0.5-1.5); INR 0.99 (0.85-1.15); POTASSIUM 3.7 mmol/L (3.5-5.1); PROTHROMBIN TIME 10.8 SEC (9.6-11.6)
[2020-05-10 10:49] LABS: PARTIAL THROMBOPLASTIN TIME 29.2 SEC (26.3-35.5)
[2020-05-10 12:28] VITALS: BP 125/63
[~2020-05-12] VITALS: Ht 160 cm; Wt 88.4 kg
[2020-05-12] VITALS (10 sets, daily range): BP systolic 97–120; BP diastolic 48–68
[~2020-05-12 07:20] MED LIST changes: -ATOR40TA71 PO; -CARV3.12 PO; +CLOP75TA32 PO; -GLIP5TAB11 PO; +ISOS30TA92 PO; +LEVO75TA10 PO; -METF-444 PO; +METO-409 PO; -NICO-704 TD; -SACU1TAB PO; -SPIR25TA6 PO; -TICA90TA PO
[2020-05-12] MEDS ORDERED: SODIUM CHLORIDE 0.9% 1000ML 1,000 ML IV SCH (08:00)
[2020-05-12] MEDS ORDERED: CEFAZOLIN SODIUM 1 GM VIAL IVP ONE (08:00)
[2020-05-12] MEDS ORDERED: BUPIVACAINE/PF 0.25% 30ML VIAL IJ ONE (08:50)
[2020-05-12] MEDS ORDERED: CEFAZOLIN SODIUM 1 GM VIAL ONE (08:50)
[2020-05-12] MEDS ORDERED: LIDOCAINE HCL 1% MDV 50ML VIAL ONE (08:51)
[2020-05-12] MEDS ORDERED: MEPERIDINE-PF 25 MG/ML SYG ONE ×2 (08:51→10:05)
[2020-05-12] MEDS ORDERED: MIDAZOLAM HCL 1 MG/ML 2ML VIAL ONE ×2 (08:51→10:05)
[2020-05-12] MEDS ORDERED: IODIXANOL 320 MG/ML 100 ML VIAL ONE (09:26)
[2020-05-12] MEDS ORDERED: DiphenhydrAMINE HCL 50 MG/ML VIAL ONE (10:00)
[2020-05-12] MEDS ORDERED: TRAM50TA4 PO (11:29)
[2020-05-12] MEDS ORDERED: ACETAMINOPHEN-CODEINE 300/30MG TAB PO PRN (11:30)
== END 2020-05-12 15:30 | disposition home or self-care (01) ==
LOC: DAH 07:20
PROVIDERS: ATTEND Internal Medicine Cardiovascular Disease
DX: I25.5 Ischemic cardiomyopathy (principal); I11.0 Hypertensive heart disease with heart failure; I50.42 Chronic combined systolic (congestive) and diastolic (congestive) heart failure; I44.7 Left bundle-branch block, unspecified; E78.5 Hyperlipidemia, unspecified; E11.9 Type 2 diabetes mellitus without complications; I25.10 Atherosclerotic heart disease of native coronary artery without angina pectoris; I25.2 Old myocardial infarction; Z79.82 Long term (current) use of aspirin; Z79.899 Other long term (current) drug therapy; Z98.890 Other specified postprocedural states; Z79.01 Long term (current) use of anticoagulants
CPT/HCPCS: 33225; 33249; 36415; 71045; 80048; 85025; 85610; 85730; A4215; A4216; A4221; A4222; A4223 ×3; A4606; A4663; C1769; C1882; C1895; C1896; C1900; J0690; J1200; J2175 ×2; J2250 ×2; J3490 ×2; J7030; Q9967; 99156; 99157

== ENCOUNTER 2021-12-18 22:56 | Inpatient (IN) | payer OTHER ==
[~2021-12-18] VITALS: Ht 160 cm; Wt 83.5 kg
[~2021-12-18 22:56] MED LIST changes: -AMIO200T44 PO; -FURO40TA5 PO; -ISOS30TA92 PO; -METO-409 PO; +TRAM50TA4 PO
[2021-12-18 23:24] LABS: BASOPHILS % (AUTO) 0.3 % (0.0-5.0); EOSINOPHILS % (AUTO) 0.3 % (0.0-8.0); HEMATOCRIT 34.2 % (36-48); LYMPHOCYTES % (AUTO) 3.3 % (21.0-51.0); MEAN CORPUSCULAR HEMOGLOBIN 29.8 pg (27.0-33.0); MEAN CORPUSCULAR HGB CONC 34.5 g/dL (32.0-36.0); MEAN CORPUSCULAR VOLUME 86.4 fL (79-99); MONOCYTES % (AUTO) 3.3 % (3.0-13.0); NEUTROPHILS % (AUTO) 91.8 % (40.0-77.0); PLATELET COUNT (AUTO) 199 K/uL (130-400); RED BLOOD CELL COUNT(AUTO) 3.96 MIL/uL (4.00-5.50); RED CELL DISTRIBUTION WIDTH 12.7 % (11.0-15.5)
[2021-12-18 23:58] LABS: CREATININE 1.7 mg/dL (0.5-1.5); POTASSIUM 3.4 mmol/L (3.5-5.1); TOTAL PROTEIN, SERUM 6.9 g/dL (6.0-8.3)
[2021-12-19 00:09] VITALS: BP 101/55
[2021-12-19] MEDS ORDERED: LACTULOSE 20 GM/30 ML UDCUP PO PRN (01:00)
[2021-12-19] MEDS ORDERED: 0.9%NACL 1000ML 1,000 ML IV ONE (01:00)
[2021-12-19] MEDS ORDERED: DEXTROSE 50%-WATER 50 ML DISP.SYRIN IV PRN (01:00)
[2021-12-19] MEDS ORDERED: ONDANSETRON 4MG INJ IVP PRN (01:00)
[2021-12-19] MEDS ORDERED: ACETAMINOPHEN 650 MG SUPPOSITORY RC PRN (01:00)
[2021-12-19] MEDS ORDERED: GLUCAGON 1MG KIT 1 MG ML IM PRN (01:00)
[2021-12-19] MEDS ORDERED: DOCUSATE SODIUM 100 MG CAP PO PRN (01:00)
[2021-12-19] MEDS ORDERED: MAGNESIUM 2GM PREMIX 50ML 50 ML IV PRN (01:00)
[2021-12-19 01:19] LABS: MAGNESIUM 1.7 mg/dL (1.80-2.40)
[2021-12-19] MEDS: POTASSIUM CHLORIDE 10MEQ/100ML 100 ML IV PRN (02:28)
[2021-12-19] MEDS ORDERED: CEFTRIAXONE 2GM VIAL IVP SCH (03:00)
[2021-12-19 03:21] LABS: APPEARANCE,URINE CLOUDY (CLEAR); BILIRUBIN,URINE NEGATIVE (NEGATIVE); COLOR,URINE LIGHT-YELLOW (YELLOW); GLUCOSE, URINE (UA) >=1000 mg/dL (NEGATIVE); KETONES,URINE 5 mg/dL (NEGATIVE); LEUKOCYTE ESTERASE ,URINE 75 Leu/uL (NEGATIVE); NITRATE,URINE NEGATIVE (NEGATIVE); OCCULT BLOOD,URINE NEGATIVE (NEGATIVE); PH,URINE 5.5 (5.0-8.0); PROTEIN,URINE NEGATIVE (NEGATIVE); UROBILINOGEN,URINE 0.2 mg/dL (0.2-1.0)
[2021-12-19 03:25] LABS: OTHER CASTS, URINE 1 /LPF (None Seen); SQUAMOUS EPITHELIAL CELL,UR RARE /HPF (0-2); WBC,URINE 26-50 /HPF (0-1)
[2021-12-19 04:26] LABS: BASOPHILS % (AUTO) 0.1 % (0.0-5.0); EOSINOPHILS % (AUTO) 0.1 % (0.0-8.0); LYMPHOCYTES % (AUTO) 7.1 % (21.0-51.0); MEAN CORPUSCULAR HEMOGLOBIN 29.7 pg (27.0-33.0); MEAN CORPUSCULAR VOLUME 90.1 fL (79-99); MONOCYTES % (AUTO) 4.6 % (3.0-13.0); NEUTROPHILS % (AUTO) 87.3 % (40.0-77.0); PLATELET COUNT (AUTO) 120 K/uL (130-400); RED BLOOD CELL COUNT(AUTO) 2.32 MIL/uL (4.00-5.50); RED CELL DISTRIBUTION WIDTH 12.9 % (11.0-15.5); WHITE BLOOD COUNT (AUTO) 8.8 K/uL (4.8-10.8)
[2021-12-19 04:28] LABS: HEMATOCRIT 20.9 % (36-48)
[2021-12-19 05:20] LABS: HEMATOCRIT 34.5 % (36-48)
[2021-12-19 05:37] LABS: CREATININE 1.6 mg/dL (0.5-1.5); POTASSIUM 3.8 mmol/L (3.5-5.1)
[2021-12-19] MEDS: INSULIN HUMULIN R 100 UNIT/ML 3ML SQ SCH ×4 (06:28→22:44)
[2021-12-19] MEDS ORDERED: METO-408 PO (06:52)
[2021-12-19] MEDS ORDERED: LINA5TAB PO (06:52)
[2021-12-19] MEDS ORDERED: METO2.5T2 PO (06:52)
[2021-12-19] MEDS ORDERED: ATOR40TA71 PO (06:52)
[2021-12-19] MEDS ORDERED: LEVO100 PO (06:52)
[2021-12-19] MEDS ORDERED: METF750T46 PO (06:52)
[2021-12-19] MEDS ORDERED: SPIR25TA6 PO (06:52)
[2021-12-19] MEDS ORDERED: GLIP5TAB11 PO (06:52)
[2021-12-19 08:23] VITALS: BP 115/61
[2021-12-19] MEDS: ACETAMINOPHEN 325 MG TAB PO PRN ×2 (08:25→15:29)
[2021-12-19 09:09] LABS: APPEARANCE,URINE CLOUDY (CLEAR); BACTERIA,URINE RARE /HPF (None Seen); BILIRUBIN,URINE NEGATIVE (NEGATIVE); COLOR,URINE LIGHT-YELLOW (YELLOW); GLUCOSE, URINE (UA) >=1000 mg/dL (NEGATIVE); KETONES,URINE NEGATIVE (NEGATIVE); LEUKOCYTE ESTERASE ,URINE 250 Leu/uL (NEGATIVE); MUCUS,URINE RARE LPF (None Seen); NITRATE,URINE NEGATIVE (NEGATIVE); OCCULT BLOOD,URINE NEGATIVE (NEGATIVE); PH,URINE 5.5 (5.0-8.0); PROTEIN,URINE 10 mg/dL (NEGATIVE); RBC,URINE 0-1 /HPF (0-1); SQUAMOUS EPITHELIAL CELL,UR RARE /HPF (0-2); UROBILINOGEN,URINE 0.2 mg/dL (0.2-1.0); WBC,URINE >100 /HPF (0-1)
[2021-12-19 10:23] LABS: BASOPHILS % (AUTO) 0.3 % (0.0-5.0); EOSINOPHILS % (AUTO) 0.3 % (0.0-8.0); HEMATOCRIT 33.3 % (36-48); LYMPHOCYTES % (AUTO) 7.4 % (21.0-51.0); MEAN CORPUSCULAR HEMOGLOBIN 30.1 pg (27.0-33.0); MEAN CORPUSCULAR HGB CONC 34.8 g/dL (32.0-36.0); MEAN CORPUSCULAR VOLUME 86.3 fL (79-99); MONOCYTES % (AUTO) 5.2 % (3.0-13.0); PLATELET COUNT (AUTO) 176 K/uL (130-400); RED BLOOD CELL COUNT(AUTO) 3.86 MIL/uL (4.00-5.50); RED CELL DISTRIBUTION WIDTH 12.9 % (11.0-15.5); WHITE BLOOD COUNT (AUTO) 11.7 K/uL (4.8-10.8)
[2021-12-19 12:25] VITALS: BP 92/52
[2021-12-19 16:14] VITALS: BP 112/63
[2021-12-19] MEDS ORDERED: CLOPIDOGREL 75MG TAB PO ONE (18:00)
[2021-12-19] MEDS ORDERED: ATORVASTATIN 40 MG TABLET PO SCH (18:00)
[2021-12-19] MEDS ORDERED: ASPIRIN 81MG CHEW TAB PO ONE (18:00)
[2021-12-19] MEDS: MEROPENEM 1 GM VIAL IVP SCH (18:49)
[2021-12-19] MEDS: FAMOTIDINE 20MG VIAL IV SCH (18:51)
[2021-12-19 19:05] VITALS: BP 95/56
[2021-12-19 23:05] VITALS: BP 147/75
[2021-12-20] VITALS (7 sets, daily range): BP systolic 80–128; BP diastolic 47–66
[2021-12-20 04:15] LABS: BASOPHILS % (AUTO) 0.3 % (0.0-5.0); EOSINOPHILS % (AUTO) 0.9 % (0.0-8.0); HEMATOCRIT 35.3 % (36-48); LYMPHOCYTES % (AUTO) 10.7 % (21.0-51.0); MEAN CORPUSCULAR HEMOGLOBIN 29.6 pg (27.0-33.0); MEAN CORPUSCULAR HGB CONC 34.3 g/dL (32.0-36.0); MEAN CORPUSCULAR VOLUME 86.3 fL (79-99); MONOCYTES % (AUTO) 8.2 % (3.0-13.0); NEUTROPHILS % (AUTO) 79.3 % (40.0-77.0); PLATELET COUNT (AUTO) 165 K/uL (130-400); RED BLOOD CELL COUNT(AUTO) 4.09 MIL/uL (4.00-5.50); WHITE BLOOD COUNT (AUTO) 7.9 K/uL (4.8-10.8)
[2021-12-20 04:38] LABS: ALBUMIN 2.8 g/dL (3.5-5.0); CREATININE 1.4 mg/dL (0.5-1.5); MAGNESIUM 2.2 mg/dL (1.80-2.40); POTASSIUM 3.5 mmol/L (3.5-5.1); TOTAL PROTEIN, SERUM 6.9 g/dL (6.0-8.3)
[2021-12-20] MEDS: LEVOTHYROXINE 100 MCG TABLET PO SCH (06:13)
[2021-12-20] MEDS: MEROPENEM 1 GM VIAL IVP SCH ×2 (06:13→17:25)
[2021-12-20] MEDS: INSULIN HUMULIN R 100 UNIT/ML 3ML SQ SCH ×4 (06:17→22:57)
[2021-12-20] MEDS: POTASSIUM CHLORIDE 10MEQ/100ML 100 ML IV PRN (06:49)
[2021-12-20] MEDS ORDERED: POTASSIUM CHLORIDE 10% ELIXIR 20 MEQ/15 ML UDCUP PO PRN (08:00)
[2021-12-20] MEDS ORDERED: CLOPIDOGREL 75MG TAB PO SCH (09:00)
[2021-12-20] MEDS ORDERED: ASPIRIN 81MG CHEW TAB PO SCH (09:00)
[2021-12-20] MEDS: ENOXAPARIN SODIUM 30 MG/0.3 ML SQ SCH (10:29)
[2021-12-20] MEDS: ASPIRIN 81MG CHEW TAB PO SCH (10:30)
[2021-12-20] MEDS: FAMOTIDINE 20MG VIAL IV SCH (10:30)
[2021-12-20] MEDS: CLOPIDOGREL 75MG TAB PO SCH (10:30)
[2021-12-20] MEDS ORDERED: SOLU-MEDROL 125MG VIAL IVP SCH (13:00)
[2021-12-20] MEDS ORDERED: DiphenhydrAMINE HCL 50 MG/ML VIAL IV PRN (13:00)
[2021-12-20] MEDS ORDERED: IOHEXOL 350 MG/ML 100ML INFUS..BTL IV ONE (14:21)
[2021-12-20] MEDS ORDERED: MIDODRINE HCL 5 MG TABLET ONE (20:59)
[2021-12-20] MEDS ORDERED: MIDODRINE HCL 5 MG TABLET PO PRN (21:00)
[2021-12-20] MEDS ORDERED: INSULIN HUMULIN R 100 UNIT/ML 3ML SQ SCH (21:00)
[2021-12-20] MEDS: ACETAMINOPHEN 325 MG TAB PO PRN (22:36)
[2021-12-21] MEDS ORDERED: ISOS30TA92 PO (02:59)
[2021-12-21] MEDS ORDERED: AMIO200T68 PO (02:59)
[2021-12-21] MEDS ORDERED: FURO40TA5 PO (02:59)
[2021-12-21 03:05] VITALS: BP 90/53
[2021-12-21 03:38] VITALS: BP 104/50
[2021-12-21 04:01] LABS: BASOPHILS % (AUTO) 0.2 % (0.0-5.0); HEMATOCRIT 33.3 % (36-48); LYMPHOCYTES % (AUTO) 9.2 % (21.0-51.0); MEAN CORPUSCULAR HEMOGLOBIN 29.2 pg (27.0-33.0); MEAN CORPUSCULAR HGB CONC 34.2 g/dL (32.0-36.0); MEAN CORPUSCULAR VOLUME 85.4 fL (79-99); MONOCYTES % (AUTO) 3.4 % (3.0-13.0); NEUTROPHILS % (AUTO) 86.7 % (40.0-77.0); PLATELET COUNT (AUTO) 196 K/uL (130-400); RED CELL DISTRIBUTION WIDTH 12.9 % (11.0-15.5); WHITE BLOOD COUNT (AUTO) 5.9 K/uL (4.8-10.8)
[2021-12-21 04:22] LABS: CREATININE 1.6 mg/dL (0.5-1.5); MAGNESIUM 2.1 mg/dL (1.80-2.40); PHOSPHORUS 2.4 mg/dL (2.5-4.9); POTASSIUM 3.2 mmol/L (3.5-5.1)
[2021-12-21] MEDS: MEROPENEM 1 GM VIAL IVP SCH ×2 (05:16→18:12)
[2021-12-21] MEDS: LEVOTHYROXINE 100 MCG TABLET PO SCH (05:18)
[2021-12-21] MEDS: INSULIN HUMULIN R 100 UNIT/ML 3ML SQ SCH ×4 (05:48→21:30)
[2021-12-21] MEDS: KCL 20 MEQ ERTAB PO PRN ×2 (06:29→10:21)
[2021-12-21 07:39] VITALS: BP 111/53
[2021-12-21] MEDS: ASPIRIN 81MG CHEW TAB PO SCH (09:52)
[2021-12-21] MEDS: FAMOTIDINE 20MG VIAL IV SCH (09:52)
[2021-12-21] MEDS: ENOXAPARIN SODIUM 30 MG/0.3 ML SQ SCH (09:52)
[2021-12-21] MEDS: CLOPIDOGREL 75MG TAB PO SCH (09:53)
[2021-12-21 11:03] VITALS: BP 116/59
[2021-12-21 16:00] VITALS: BP 117/62
[2021-12-21 19:09] VITALS: BP 119/59
[2021-12-21 19:36] LABS: INR 0.93 (0.85-1.15)
[2021-12-21 19:37] LABS: PARTIAL THROMBOPLASTIN TIME 27.9 SEC (26.3-35.5)
[2021-12-21] MEDS ORDERED: ATORVASTATIN 40 MG TABLET PO SCH (21:00)
[2021-12-22 00:09] VITALS: BP 99/45
[2021-12-22 03:09] VITALS: BP 131/68
[2021-12-22 03:31] LABS: BASOPHILS % (AUTO) 0.2 % (0.0-5.0); EOSINOPHILS % (AUTO) 0.4 % (0.0-8.0); HEMATOCRIT 34.7 % (36-48); MEAN CORPUSCULAR HEMOGLOBIN 29.5 pg (27.0-33.0); MEAN CORPUSCULAR HGB CONC 34.3 g/dL (32.0-36.0); MEAN CORPUSCULAR VOLUME 85.9 fL (79-99); MONOCYTES % (AUTO) 7.3 % (3.0-13.0); NEUTROPHILS % (AUTO) 76.7 % (40.0-77.0); PLATELET COUNT (AUTO) 264 K/uL (130-400); RED BLOOD CELL COUNT(AUTO) 4.04 MIL/uL (4.00-5.50); RED CELL DISTRIBUTION WIDTH 12.9 % (11.0-15.5); WHITE BLOOD COUNT (AUTO) 11.4 K/uL (4.8-10.8)
[2021-12-22 03:42] LABS: CREATININE 1.9 mg/dL (0.5-1.5); MAGNESIUM 2.3 mg/dL (1.80-2.40); PHOSPHORUS 2.9 mg/dL (2.5-4.9); POTASSIUM 3.5 mmol/L (3.5-5.1)
[2021-12-22] MEDS: LEVOTHYROXINE 100 MCG TABLET PO SCH (05:39)
[2021-12-22] MEDS: MEROPENEM 1 GM VIAL IVP SCH (05:39)
[2021-12-22] MEDS: INSULIN HUMULIN R 100 UNIT/ML 3ML SQ SCH ×2 (05:46→12:18)
[2021-12-22 07:00] VITALS: BP 134/58
[2021-12-22] MEDS ORDERED: AMIODARONE 200 MG TABLET PO SCH (09:00)
[2021-12-22 11:00] VITALS: BP 121/53
[2021-12-22] MEDS: CLOPIDOGREL 75MG TAB PO SCH (12:12)
[2021-12-22] MEDS: ASPIRIN 81MG CHEW TAB PO SCH (12:12)
[2021-12-22] MEDS: ENOXAPARIN SODIUM 30 MG/0.3 ML SQ SCH (12:14)
[2021-12-22] MEDS: FAMOTIDINE 20MG VIAL IV SCH (12:14)
[2021-12-22 16:00] VITALS: BP 127/56
== END 2021-12-22 17:52 | disposition left against medical advice (07) | DRG 871 ==
LOC: EDH 22:56 → OBSVTOIN 12-19 00:48 → EDHIP 12-19 00:48 → 2DH 12-19 03:06 → 4AH 12-22 14:25
PROVIDERS: ADMIT Internal Medicine Pulmonary Disease; ATTEND Internal Medicine Pulmonary Disease
DX: A41.51 Sepsis due to Escherichia coli [E. coli] (principal); R65.21 Severe sepsis with septic shock; E87.1 Hypo-osmolality and hyponatremia; I13.0 Hypertensive heart and chronic kidney disease with heart failure and stage 1 through stage 4 chronic kidney disease, or unspecified chronic kidney disease; L97.419 Non-pressure chronic ulcer of right heel and midfoot with unspecified severity; N39.0 Urinary tract infection, site not specified; I50.22 Chronic systolic (congestive) heart failure; N17.9 Acute kidney failure, unspecified; Z16.24 Resistance to multiple antibiotics; E11.52 Type 2 diabetes mellitus with diabetic peripheral angiopathy with gangrene; I25.810 Atherosclerosis of coronary artery bypass graft(s) without angina pectoris; Z20.822 Contact with and (suspected) exposure to COVID-19; R29.6 Repeated falls; N18.9 Chronic kidney disease, unspecified; E11.22 Type 2 diabetes mellitus with diabetic chronic kidney disease; L60.2 Onychogryphosis; I25.5 Ischemic cardiomyopathy; E87.6 Hypokalemia; E78.00 Pure hypercholesterolemia, unspecified; E66.9 Obesity, unspecified; E11.65 Type 2 diabetes mellitus with hyperglycemia; E03.9 Hypothyroidism, unspecified; D64.9 Anemia, unspecified; E11.51 Type 2 diabetes mellitus with diabetic peripheral angiopathy without gangrene; W18.39XA Other fall on same level, initial encounter; E11.621 Type 2 diabetes mellitus with foot ulcer; Z95.5 Presence of coronary angioplasty implant and graft; Z98.62 Peripheral vascular angioplasty status; Z95.810 Presence of automatic (implantable) cardiac defibrillator; Z95.1 Presence of aortocoronary bypass graft; Z87.891 Personal history of nicotine dependence; Z87.440 Personal history of urinary (tract) infections; Z83.3 Family history of diabetes mellitus; Z82.49 Family history of ischemic heart disease and other diseases of the circulatory system; I25.2 Old myocardial infarction; Y93.89 Activity, other specified; Y92.89 Other specified places as the place of occurrence of the external cause; Y99.8 Other external cause status
CPT/HCPCS: 36415; 70450; 71045; 73630; 73700; 75635; 80048; 80053; 81001; 82550; 82948; 83605; 83735; 83880; 84100; 84145; 84484; 85014; 85018; 85025; 85610; 85730; 87040; 87077; 87088; 87186; 87635; 87804; 93005; 93925; 97039; C1894; G0378; J0696; J1200; J1650; J1815; J2185; J2930; J3475; J3490; Q9967

== ENCOUNTER 2022-08-15 14:43 | Emergency (ER) | payer OTHER, MEDICARE ==
[~2022-08-15] VITALS: Ht 160 cm; Wt 77.1 kg
[~2022-08-15 14:43] MED LIST changes: +AMIO200T68 PO; +ATOR40TA71 PO; +FURO40TA5 PO; +GLIP5TAB11 PO; +ISOS30TA92 PO; +LEVO100 PO; -LEVO75TA10 PO; +LINA5TAB PO; +METF750T46 PO; +METO-408 PO; +METO2.5T2 PO; +SPIR25TA6 PO; -TRAM50TA4 PO
[2022-08-15 15:27] VITALS: BP 105/47
[2022-08-15] MEDS ORDERED: GABA300C PO (16:10)
== END 2022-08-15 16:30 | disposition home or self-care (01) ==
LOC: EDH 14:43
DX: G62.9 Polyneuropathy, unspecified (principal); Z79.82 Long term (current) use of aspirin; Z79.899 Other long term (current) drug therapy; Z88.8 Allergy status to other drugs, medicaments and biological substances; Z95.1 Presence of aortocoronary bypass graft; Z95.810 Presence of automatic (implantable) cardiac defibrillator

== ENCOUNTER 2023-01-12 19:46 | Emergency (ER) | payer OTHER, MEDICARE ==
[~2023-01-12] VITALS: Ht 160 cm; Wt 78.5 kg
[~2023-01-12 19:46] MED LIST changes: -FURO40TA5 PO; +GABA300C PO; -GLIP5TAB11 PO; +GLIP5TAB15 PO
[2023-01-12 20:13] LABS: BASOPHILS # (AUTO) 0.04 K/uL (0.00-0.20); BASOPHILS % (AUTO) 0.3 % (0.0-5.0); EOSINOPHILS # (AUTO) 0.18 K/uL (0.00-0.70); EOSINOPHILS % (AUTO) 1.3 % (0.0-8.0); HEMATOCRIT 45.9 % (36-48); IMMATURE GRANULOCYTE ABSOLUTE 0.09 K/uL (0-1); LYMPHOCYTES # (AUTO) 1.3 K/uL (1.0-4.8); LYMPHOCYTES % (AUTO) 9.6 % (21.0-51.0); MEAN CORPUSCULAR HEMOGLOBIN 29.1 pg (27.0-33.0); MEAN CORPUSCULAR HGB CONC 34.2 g/dL (32.0-36.0); MONOCYTES # (AUTO) 0.7 K/uL (0.1-1.0); MONOCYTES % (AUTO) 5.1 % (3.0-13.0); NEUTROPHILS # (AUTO) 11.4 K/uL (1.8-7.7); PLATELET COUNT (AUTO) 251 K/uL (130-400); RED CELL DISTRIBUTION WIDTH 12.9 % (11.0-15.5); WHITE BLOOD COUNT (AUTO) 13.7 K/uL (4.8-10.8)
[2023-01-12 20:58] LABS: SARS-CoV-2, RNA, NAAT NEGATIVE SARS CoV-2 (NEGATIVE)
[2023-01-12 21:02] LABS: INFLUENZA TYPE A Negative For Type A (NEGATIVE); INFLUENZA TYPE B Negative For Type B (NEGATIVE)
[2023-01-12 21:13] LABS: CREATININE 1.6 mg/dL (0.5-1.5)
[2023-01-12 21:16] LABS: ALBUMIN 3.6 g/dL (3.5-5.0)
[2023-01-12 21:19] LABS: BILIRUBIN,TOTAL 0.6 mg/dL (0.2-1.0)
[2023-01-12 21:40] LABS: MAGNESIUM 1.8 mg/dL (1.80-2.40)
[2023-01-12 21:43] LABS: APPEARANCE,URINE CLOUDY (CLEAR); BILIRUBIN,URINE NEGATIVE (NEGATIVE); COLOR,URINE YELLOW (YELLOW); GLUCOSE, URINE (UA) NEGATIVE (NEGATIVE); KETONES,URINE 5 mg/dL (NEGATIVE); LEUKOCYTE ESTERASE ,URINE 250 Leu/uL (NEGATIVE); NITRATE,URINE NEGATIVE (NEGATIVE); OCCULT BLOOD,URINE MODERATE (NEGATIVE); PROTEIN,URINE 30 mg/dL (NEGATIVE); UROBILINOGEN,URINE 0.2 mg/dL (0.2-1.0)
[2023-01-12 21:44] LABS: ADD UA MICROSCOPIC YES
[2023-01-12 21:47] LABS: BACTERIA,URINE FEW /HPF (None Seen); MUCUS,URINE RARE LPF (None Seen); SQUAMOUS EPITHELIAL CELL,UR RARE /HPF (0-2)
[2023-01-12] MEDS ORDERED: CEFTRIAXONE 2GM VIAL IVPB ONE (22:00)
[2023-01-12 22:06] LABS: THYROID STIMULATING HORMONE 131.15 uIU/mL (0.36-3.74)
[2023-01-12] MEDS ORDERED: CEPH500B PO (22:57)
[2023-01-12] MEDS ORDERED: LEVO25TA9 PO (22:57)
[2023-01-12 23:23] VITALS: BP 109/62; PULSE 86; RESP 17; O2SAT 97
== END 2023-01-12 23:39 | disposition home or self-care (01) ==
LOC: EDH 19:46
DX: N39.0 Urinary tract infection, site not specified (principal); E03.9 Hypothyroidism, unspecified; E78.00 Pure hypercholesterolemia, unspecified; I50.9 Heart failure, unspecified; Z79.02 Long term (current) use of antithrombotics/antiplatelets; Z79.82 Long term (current) use of aspirin; Z79.899 Other long term (current) drug therapy; Z91.041 Radiographic dye allergy status; Z95.1 Presence of aortocoronary bypass graft; Z88.8 Allergy status to other drugs, medicaments and biological substances; Z20.822 Contact with and (suspected) exposure to COVID-19
CPT/HCPCS: 99284; 96374; 87635; 84443; 83735; 84484; 80053; 83690; 85025; 87077; 87088; 87186; 87804 ×2; 81001; 36415; 93005; C9803; J0696